=== PATIENT | female | born 1960 | race Caucasian/White ===

== ENCOUNTER → 2020-03-08 12:36 | Outpatient (CLI) | payer MEDICARE, MEDICAID, SELFPAY ==
[2020-03-08 15:28] LABS: Absolute Lymphocyte Count 2.08 X10^3/uL (0.83-4.51); Absolute Neutrophil Count 3.6 X10^3/uL (2.0-7.7); Basophil# 0.05 X10^3/uL; Basophil% 0.8 % (0-1); Eosinophil# 0.07 X10^3/uL; Eosinophils% 1.1 % (0-5); Hematocrit 42.9 % (37-47); Hemoglobin 12.9 g/dL (12.0-15.0); Lymphocyte # 2.08 X10^3/ul (4.0); Lymphocyte % 33.3 % (19-41); Mean Corp Hgb Conc 30.1 g/dL (32-36); Mean Corpuscular Hgb 26.7 pg (27.0-32.0); Mean Corpuscular Volume 88.8 fL (81-99); Mean Platelet Vol. 9.6 fl (6.2-12.0); Monocyte# 0.47 X10^3/uL; Monocyte% 7.5 % (0-10); NRBC Flagged by Analyzer 0 % (0-5); Neutrophil # 3.55 X10^3/uL (2.7-7.7); Platelet Count 494 K/mm3 (150-450); RBC Distribution Width CV 14.6 % (11.6-14.6); Red Blood Count 4.83 M/mm3 (4.2-5.4); White Blood Count 6.2 K/mm3 (4.4-11.0)
[2020-03-08 16:07] LABS: ALB/GLOB Ratio 1.2 RATIO (0.9-2.4); AST(SGOT) 16 U/L (15-37); Alanine Aminotransfer ALT/SGPT 17 U/L (13-56); Alkaline Phosphatase 126 U/L (45-117); Anion Gap 8 (5-15); BUN 6 mg/dL (7-18); BUN/Creat Ratio 9.7 RATIO (10-20); Chloride 105 mmol/L (98-107); Cholesterol 272 mg/dL (200); Creatinine, Serum 0.62 mg/dL (0.55-1.02); EST Glomerular Filtration Rate 104 mL/min (>60); Est Glom Filt Rate - Afr Amer 126 mL/min (>60); Globulin 3.3 g/dL (2.2-4.2); Glucose 97 mg/dL (74-106); High Density Lipoprotein 45 mg/dL; Potassium 3.9 mmol/L (3.5-5.1); Protein, Total 7.3 g/dL (6.4-8.2); Sodium Level 141 mmol/L (136-145); T4 Free Direct 1.45 ng/dL (0.76-1.46); Thyroid Stim Hormone (TSH) 0.01 uIU/mL (0.358-3.74); Triglycerides 229 mg/dL; Very Low Density Lipoprotein 46 mg/dL (5-40)
== END ==
PROVIDERS: PCP Family Medicine; Referring Provider Family Medicine; Visit Provider Family Medicine
DX: E03.9 Hypothyroidism, unspecified (principal); E78.5 Hyperlipidemia, unspecified
CPT/HCPCS: 36415; 80053; 80061; 84439; 84443; 85025

== ENCOUNTER → 2020-05-17 | Outpatient (CLI) | payer MEDICARE, SELFPAY ==
[2020-05-17 18:41] LABS: T4 Free Direct 1.15 ng/dL (0.76-1.46)
[2020-05-18 08:50] LABS: Thyroid Stim Hormone (TSH) 0.03 uIU/mL (0.358-3.74)
== END | disposition home or self-care (01) ==
LOC: MFPLAB 16:30
PROVIDERS: PCP Family Medicine; Referring Provider Family Medicine; Visit Provider Family Medicine
DX: E03.9 Hypothyroidism, unspecified (principal)
CPT/HCPCS: 36415; 84439; 84443

== ENCOUNTER → 2020-06-07 | Outpatient (CLI) | payer MEDICARE, SELFPAY ==
--- NOTE | 2020-06-07 15:47 | RAD_ITS ---
STUDY: X-RAY - LUMBAR SPINE REASON FOR EXAM: Female, 60 years old. LBP TECHNIQUE: 5 view(s) of the lumbar spine were obtained. COMPARISON: None FINDINGS: Normal lumbar lordosis. There is a mild lumbar levoscoliosis which may merely be positional in nature. There is a normal alignment of the vertebrae. There is a transitional vertebrae of the lumbosacral junction. There is generalized demineralization of the vertebral bodies. Normal disc space heights. There is no demonstrated fracture. There are calcified plaques of the abdominal aorta. RAD/L/S Spine Min 4 Views IMPRESSION: Generalized osteopenia. Transitional vertebrae of the lumbosacral junction. Mild mid lumbar levoscoliosis which may merely be positional in nature. There is no evidence of fracture, spondylolysis, or spondylolisthesis. Electronically Signed: Jerry Giraldo MD at 21:55 EDT , Service support ,
--- NOTE | 2020-06-07 15:49 | RAD_ITS ---
STUDY: X-RAY - SACROILIAC JOINTS REASON FOR EXAM: Female, 60 years old. LBP TECHNIQUE: 3 view(s) of the sacroiliac joints were obtained. COMPARISON: None. FINDINGS: Normal bilateral sacroiliac joints. Normal visualized sacral ala and sacrum. Normal visualized iliac bones. Normal visualized soft tissue structures. RAD/S-I Jts 3 or More Views IMPRESSION: Normal x-ray examination of the bilateral sacroiliac joints. Electronically Signed: Jerry Giraldo MD at 21:53 EDT , Service support ,
[2020-06-07 18:32] LABS: Free T3 1.9 pg/mL (2.18-3.98); T4 Free Direct 1.01 ng/dL (0.76-1.46); Thyroid Stim Hormone (TSH) 0.09 uIU/mL (0.358-3.74)
== END | disposition home or self-care (01) ==
PROVIDERS: PCP Family Medicine; Referring Provider Family Medicine; Visit Provider Family Medicine
DX: E03.9 Hypothyroidism, unspecified (principal); M54.5 Low back pain
CPT/HCPCS: 36415; 72110; 72202; 84439; 84443; 84481

== ENCOUNTER → 2020-08-09 14:37 | Outpatient (CLI) | payer MEDICARE, MEDICAID, SELFPAY ==
--- NOTE | 2020-08-09 14:39 | BD_ITS ---
STUDY: DUAL ENERGY X-RAY ABSORPTIOMETRY / DXA REASON FOR EXAM: Female, 60 years old. 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 COMPARISON: None. FINDINGS: Lumbar Spine (L1-L4): g/cm2 (0.922) / T-score (-2.3) / Z-score (-1.0) Findings are suggestive of osteopenia with a high fracture risk. Left Femur Total: g/cm2 (0.579) / T-score (-3.4) / Z-score (-2.4) Left Femoral Neck: g/cm2 (0.614) / T-score (-3.1) / Z-score (-1.8) Right Femur Total: g/cm2 (0.606) / T-score (-3.2) / Z-score (-2.2) Right Femoral Neck: g/cm2 (0.632) / T-score (-2.9) / Z-score (-1.6) BD/Dexa Bone Density Study IMPRESSION: The patient is considered osteoporotic as outlined below according to World Oscar Organization (WHO) criteria with a high fracture risk. Reference Information: The T-score is the number of standard deviations above or below the standard which is normal for young adults at their peak bone mineral density. The World Health Organization (WHO) interprets the T-scores as follows: Above -1 Normal bone density Between -1 and -2.5 Osteopenia Equal to / or below -2.5 Osteoporosis As a practical clinical guideline, osteopenia may be graded as follows: Mild -1 through -1.5 Moderate -1.6 through -2.0 Severe -2.1 through -2.4 The Z-score is the number of standard deviations above or below age-matched controls. A Z-score of less than -1.5 would be considered abnormal. References: 1. NIH Osteoporosis and Related Bone Diseases www osteo.org 2. International Society for Clinical Densitometry www iscd.org 3. National Osteoporosis Foundation www nof.org Electronically Signed: Glenn Pablo, at 10:54 EST , Service support ,
== END ==
PROVIDERS: PCP Family Medicine; Referring Provider Family Medicine; Visit Provider Family Medicine
DX: Z78.0 Asymptomatic menopausal state (principal)
CPT/HCPCS: 77080

== ENCOUNTER → 2020-08-16 13:28 | Outpatient (CLI) | payer MEDICARE, MEDICAID, SELFPAY ==
[2020-08-16 16:20] LABS: Free T3 3.5 pg/mL (2.18-3.98); T4 Free Direct 1.13 ng/dL (0.76-1.46); Thyroid Stim Hormone (TSH) 0.08 uIU/mL (0.358-3.74)
== END ==
PROVIDERS: PCP Family Medicine; Referring Provider Family Medicine; Visit Provider Family Medicine
DX: E03.9 Hypothyroidism, unspecified (principal)
CPT/HCPCS: 36415; 84439; 84443; 84481

== ENCOUNTER → 2020-11-12 11:41 | Outpatient (CLI) | payer MEDICARE, MEDICAID, SELFPAY | PROVIDERS: PCP Family Medicine; Visit Provider Registered Nurse | DX: B34.9 Viral infection, unspecified (principal) | CPT/HCPCS: 87635; U0005; U0003 ==

== ENCOUNTER → 2020-11-26 14:59 | Outpatient (CLI) | payer MEDICARE, MEDICAID, SELFPAY ==
[2020-11-26 17:51] LABS: Absolute Neutrophil Count 5.2 X10^3/uL (2.0-7.7); Basophil# 0.04 X10^3/uL; Basophil% 0.5 % (0-1); Eosinophil# 0.07 X10^3/uL; Eosinophils% 0.9 % (0-5); Hematocrit 40.9 % (37-47); Hemoglobin 12.3 g/dL (12.0-15.0); Lymphocyte % 22.9 % (19-41); Mean Corp Hgb Conc 30.1 g/dL (32-36); Mean Corpuscular Hgb 26.3 pg (27.0-32.0); Mean Corpuscular Volume 87.6 fL (81-99); Mean Platelet Vol. 9.5 fl (6.2-12.0); Monocyte% 5.4 % (0-10); NRBC Flagged by Analyzer 0 % (0-5); Platelet Count 464 K/mm3 (150-450); RBC Distribution Width CV 14.6 % (11.6-14.6); RBC Distribution Width SD 46.8 fl (35.1-43.9); Red Blood Count 4.67 M/mm3 (4.2-5.4); White Blood Count 7.4 K/mm3 (4.4-11.0)
[2020-11-26 18:13] LABS: ALB/GLOB Ratio 0.9 RATIO (0.9-2.4); AST(SGOT) 17 U/L (15-37); Alanine Aminotransfer ALT/SGPT 18 U/L (13-56); Albumin, Serum 3.6 g/dL (3.2-5.0); Alkaline Phosphatase 137 U/L (45-117); Anion Gap 10 (5-15); BUN 7 mg/dL (7-18); BUN/Creat Ratio 9.6 RATIO (10-20); Calcium,Total 8.9 mg/dL (8.5-10.1); Chloride 104 mmol/L (98-107); Creatinine, Serum 0.73 mg/dL (0.55-1.02); EST Glomerular Filtration Rate 87 mL/min (>60); Est Glom Filt Rate - Afr Amer 105 mL/min (>60); Free T3 3.2 pg/mL (2.18-3.98); Globulin 3.8 g/dL (2.2-4.2); Glucose 92 mg/dL (74-106); Potassium 3.6 mmol/L (3.5-5.1); Protein, Total 7.4 g/dL (6.4-8.2); Sodium Level 139 mmol/L (136-145); T4 Total, Thyroxin 7.9 ug/dL (4.8-13.9); Thyroid Stim Hormone (TSH) 0.68 uIU/mL (0.358-3.74)
== END ==
PROVIDERS: PCP Family Medicine; Referring Provider Family Medicine; Visit Provider Family Medicine
DX: E03.9 Hypothyroidism, unspecified (principal)
CPT/HCPCS: 36415; 80053; 84436; 84443; 84481; 85025

== ENCOUNTER → 2021-04-24 14:27 | Outpatient (CLI) | payer MEDICARE, MEDICAID, SELFPAY ==
[2021-04-24 14:36] VITALS: BP 130/73; PULSE 87; RESP 16; TEMP 36; O2SAT 94; BMI 29.6
[2021-04-24] MEDS: 0.9% NaCl Peripheral Flush Adult/Peds IV ×2 (15:00→15:20)
[2021-04-24] MEDS: Zoledronic Acid 5 MG 100 ML 300 MG IV (15:01)
[2021-04-24 15:21] VITALS: BP 113/70; PULSE 75; RESP 16; TEMP 36; O2SAT 95
== END ==
PROVIDERS: PCP Family Medicine; Referring Provider Family Medicine; Visit Provider Family Medicine
DX: M81.0 Age-related osteoporosis without current pathological fracture (principal)
CPT/HCPCS: 96365; A4216; J3489

== ENCOUNTER → 2021-05-02 14:08 | Outpatient (CLI) | payer MEDICARE, MEDICAID, SELFPAY ==
[2021-04-24 14:36] VITALS: BMI 29.6
[2021-05-02 18:06] LABS: Absolute Lymphocyte Count 2.17 X10^3/uL (0.83-4.51); Absolute Neutrophil Count 6.1 X10^3/uL (2.0-7.7); Basophil# 0.05 X10^3/uL; Basophil% 0.6 % (0-1); Eosinophil# 0.06 X10^3/uL; Eosinophils% 0.7 % (0-5); Hematocrit 42.5 % (37-47); Hemoglobin 12.9 g/dL (12.0-15.0); Lymphocyte # 2.17 X10^3/ul (0.83-4.51); Lymphocyte % 24.5 % (19-41); Mean Corp Hgb Conc 30.4 g/dL (32-36); Mean Corpuscular Hgb 25.6 pg (27.0-32.0); Mean Corpuscular Volume 84.3 fL (81-99); Mean Platelet Vol. 9.5 fl (6.2-12.0); Monocyte# 0.46 X10^3/uL; Monocyte% 5.2 % (0-10); NRBC Flagged by Analyzer 0 % (0-5); Neutrophil % 68.8 % (47-70); Platelet Count 594 K/mm3 (150-450); RBC Distribution Width CV 14.8 % (11.6-14.6); RBC Distribution Width SD 45.2 fl (35.1-43.9); Red Blood Count 5.04 M/mm3 (4.2-5.4); White Blood Count 8.9 K/mm3 (4.4-11.0)
[2021-05-02 18:44] LABS: ALB/GLOB Ratio 0.9 RATIO (0.9-2.4); AST(SGOT) 14 U/L (15-37); Alanine Aminotransfer ALT/SGPT 19 U/L (13-56); Albumin, Serum 3.6 g/dL (3.2-5.0); Alkaline Phosphatase 129 U/L (45-117); Anion Gap 10 (5-15); BUN 7 mg/dL (7-18); BUN/Creat Ratio 11.3 RATIO (10-20); Calcium,Total 8.4 mg/dL (8.5-10.1); Chloride 105 mmol/L (98-107); Creatinine, Serum 0.62 mg/dL (0.55-1.02); EST Glomerular Filtration Rate 104 mL/min (>60); Est Glom Filt Rate - Afr Amer 126 mL/min (>60); Free T3 2.8 pg/mL (2.18-3.98); Globulin 4.1 g/dL (2.2-4.2); Glucose 78 mg/dL (74-106); Potassium 3.3 mmol/L (3.5-5.1); Protein, Total 7.7 g/dL (6.4-8.2); Sodium Level 141 mmol/L (136-145); T4 Free Direct 0.86 ng/dL (0.76-1.46); Thyroid Stim Hormone (TSH) 0.35 uIU/mL (0.358-3.74)
== END ==
PROVIDERS: PCP Family Medicine; Referring Provider Family Medicine; Visit Provider Family Medicine
DX: E03.9 Hypothyroidism, unspecified (principal); R60.9 Edema, unspecified
CPT/HCPCS: 36415; 80053; 83880; 84439; 84443; 84481; 85025

== ENCOUNTER → 2021-09-06 11:57 | Outpatient (CLI) | payer MEDICARE, MEDICAID, SELFPAY | PROVIDERS: PCP Nurse Practitioner Family; Referring Provider Nurse Practitioner Family; Visit Provider Nurse Practitioner Family | DX: J06.9 Acute upper respiratory infection, unspecified (principal) | CPT/HCPCS: 87633; 87635; U0005; U0003 ==

== ENCOUNTER → 2021-09-26 16:48 | Outpatient (CLI) | payer MEDICARE, MEDICAID, SELFPAY ==
[2021-09-26 17:41] LABS: Absolute Lymphocyte Count 1.46 X10^3/uL (0.83-4.51); Absolute Neutrophil Count 5.1 X10^3/uL (2.0-7.7); Basophil# 0.03 X10^3/uL; Basophil% 0.4 % (0-1); Eosinophil# 0.06 X10^3/uL; Eosinophils% 0.8 % (0-5); Hematocrit 42.2 % (37-47); Hemoglobin 12.8 g/dL (12.0-15.0); Lymphocyte # 1.46 X10^3/ul (0.83-4.51); Lymphocyte % 20.3 % (19-41); Mean Corp Hgb Conc 30.3 g/dL (32-36); Mean Corpuscular Hgb 25.9 pg (27.0-32.0); Mean Corpuscular Volume 85.3 fL (81-99); Mean Platelet Vol. 9.5 fl (6.2-12.0); Monocyte# 0.51 X10^3/uL; Monocyte% 7.1 % (0-10); NRBC Flagged by Analyzer 0 % (0-5); Neutrophil % 71.1 % (47-70); Platelet Count 434 K/mm3 (150-450); RBC Distribution Width CV 15.2 % (11.6-14.6); RBC Distribution Width SD 47.4 fl (35.1-43.9); Red Blood Count 4.95 M/mm3 (4.2-5.4); White Blood Count 7.2 K/mm3 (4.4-11.0)
[2021-09-26 18:18] LABS: T4 Free Direct 1.04 ng/dL (0.76-1.46); Thyroid Stim Hormone (TSH) 0.21 uIU/mL (0.358-3.74)
== END ==
PROVIDERS: PCP Nurse Practitioner Family; Visit Provider Nurse Practitioner Family
DX: E03.9 Hypothyroidism, unspecified (principal); R59.1 Generalized enlarged lymph nodes
CPT/HCPCS: 36415; 84439; 84443; 84481; 85025

== ENCOUNTER 2021-12-25 14:35 | Outpatient (CLI) | payer MEDICARE, MEDICAID, SELFPAY ==
[2021-12-25 17:36] LABS: Absolute Lymphocyte Count 2.11 X10^3/uL (0.83-4.51); Absolute Neutrophil Count 5.4 X10^3/uL (2.0-7.7); Basophil# 0.04 X10^3/uL; Basophil% 0.5 % (0-1); Eosinophil# 0.09 X10^3/uL; Eosinophils% 1.1 % (0-5); Hematocrit 43.1 % (37-47); Hemoglobin 13.3 g/dL (12.0-15.0); Lymphocyte # 2.11 X10^3/ul (0.83-4.51); Lymphocyte % 25.3 % (19-41); Mean Corp Hgb Conc 30.9 g/dL (32-36); Mean Corpuscular Hgb 26.8 pg (27.0-32.0); Mean Corpuscular Volume 86.9 fL (81-99); Mean Platelet Vol. 9.8 fl (6.2-12.0); Monocyte# 0.65 X10^3/uL; Monocyte% 7.8 % (0-10); NRBC Flagged by Analyzer 0 % (0-5); Neutrophil % 64.8 % (47-70); Platelet Count 467 K/mm3 (150-450); RBC Distribution Width CV 14.4 % (11.6-14.6); RBC Distribution Width SD 46.1 fl (35.1-43.9); Red Blood Count 4.96 M/mm3 (4.2-5.4); White Blood Count 8.3 K/mm3 (4.4-11.0)
[2021-12-25 18:01] LABS: Anion Gap 8 (5-15); BUN 9 mg/dL (7-18); BUN/Creat Ratio 12.8 RATIO (10-20); Calcium,Total 8.9 mg/dL (8.5-10.1); Chloride 106 mmol/L (98-107); Cholesterol 318 mg/dL (200); EST Glomerular Filtration Rate 90 mL/min (>60); Est Glom Filt Rate - Afr Amer 108 mL/min (>60); Free T3 2.9 pg/mL (2.18-3.98); Glucose 86 mg/dL (74-106); High Density Lipoprotein 38 mg/dL; Potassium 3.8 mmol/L (3.5-5.1); Sodium Level 138 mmol/L (136-145); T4 Free Direct 1.02 ng/dL (0.76-1.46); Thyroid Stim Hormone (TSH) 1.24 uIU/mL (0.358-3.74); Triglycerides 387 mg/dL; Very Low Density Lipoprotein 77 mg/dL (5-40)
== END 2021-12-25 23:59 | disposition home or self-care (01) ==
LOC: MFPLAB 14:36
PROVIDERS: PCP Family Medicine; Referring Provider Family Medicine; Visit Provider Family Medicine
DX: E03.9 Hypothyroidism, unspecified (principal); E78.5 Hyperlipidemia, unspecified; R59.1 Generalized enlarged lymph nodes
CPT/HCPCS: 36415; 80048; 80061; 84439; 84443; 84481; 85025

== ENCOUNTER 2022-04-09 14:42 | Outpatient (CLI) | payer MEDICARE, MEDICAID, SELFPAY ==
[2022-04-09 18:41] LABS: ALB/GLOB Ratio 0.9 RATIO (0.9-2.4); AST(SGOT) 20 U/L (15-37); Alanine Aminotransfer ALT/SGPT 21 U/L (13-56); Albumin, Serum 3.5 g/dL (3.2-5.0); Alkaline Phosphatase 98 U/L (45-117); Anion Gap 7 (5-15); BUN 6 mg/dL (7-18); BUN/Creat Ratio 8.5 RATIO (10-20); Calcium,Total 9.5 mg/dL (8.5-10.1); Chloride 110 mmol/L (98-107); Cholesterol 282 mg/dL (200); Creatinine, Serum 0.71 mg/dL (0.55-1.02); EST Glomerular Filtration Rate 88 mL/min (>60); Est Glom Filt Rate - Afr Amer 107 mL/min (>60); Free T3 3.3 pg/mL (2.18-3.98); Globulin 4.1 g/dL (2.2-4.2); Glucose 82 mg/dL (74-106); High Density Lipoprotein 34 mg/dL; Potassium 3.8 mmol/L (3.5-5.1); Protein, Total 7.6 g/dL (6.4-8.2); Sodium Level 140 mmol/L (136-145); T4 Free Direct 0.93 ng/dL (0.76-1.46); Thyroid Stim Hormone (TSH) 0.16 uIU/mL (0.358-3.74); Triglycerides 464 mg/dL
== END 2022-04-09 23:59 | disposition home or self-care (01) ==
LOC: MFPLAB 14:48
PROVIDERS: PCP Family Medicine; Referring Provider Family Medicine; Visit Provider Family Medicine
DX: E03.9 Hypothyroidism, unspecified (principal); E78.5 Hyperlipidemia, unspecified
CPT/HCPCS: 36415; 80053; 80061; 84439; 84443; 84481

== ENCOUNTER → 2022-07-25 | Outpatient (CLI) | payer MEDICARE, MEDICAID, SELFPAY ==
[2022-07-25 18:19] LABS: ALB/GLOB Ratio 1.1 RATIO (0.9-2.4); AST(SGOT) 18 U/L (15-37); Alanine Aminotransfer ALT/SGPT 20 U/L (13-56); Albumin, Serum 3.9 g/dL (3.2-5.0); Alkaline Phosphatase 97 U/L (45-117); Anion Gap 5 (5-15); BUN 6 mg/dL (7-18); BUN/Creat Ratio 8.4 RATIO (10-20); Chloride 107 mmol/L (98-107); Cholesterol 188 mg/dL (200); Creatinine, Serum 0.72 mg/dL (0.55-1.02); EST Glomerular Filtration Rate 87 mL/min (>60); Est Glom Filt Rate - Afr Amer 106 mL/min (>60); Free T3 2.8 pg/mL (2.18-3.98); Globulin 3.6 g/dL (2.2-4.2); Glucose 68 mg/dL (74-106); High Density Lipoprotein 43 mg/dL; Potassium 3.6 mmol/L (3.5-5.1); Protein, Total 7.5 g/dL (6.4-8.2); Sodium Level 140 mmol/L (136-145); T4 Free Direct 0.73 ng/dL (0.76-1.46); Thyroid Stim Hormone (TSH) 1.28 uIU/mL (0.358-3.74); Triglycerides 294 mg/dL; Very Low Density Lipoprotein 59 mg/dL (5-40)
== END | disposition home or self-care (01) ==
LOC: MFPLAB 15:27
PROVIDERS: PCP Family Medicine; Referring Provider Family Medicine; Visit Provider Family Medicine
DX: E03.9 Hypothyroidism, unspecified (principal); E78.5 Hyperlipidemia, unspecified
CPT/HCPCS: 36415; 80053; 80061; 84439; 84443; 84481

== ENCOUNTER → 2022-12-18 | Outpatient (CLI) | payer MEDICARE, MEDICAID, SELFPAY ==
[2022-12-18 18:39] LABS: Absolute Lymphocyte Count 2.15 X10^3/uL (0.83-4.51); Absolute Neutrophil Count 6.2 X10^3/uL (2.0-7.7); Basophil# 0.02 X10^3/uL; Basophil% 0.2 % (0-1); Eosinophil# 0.06 X10^3/uL; Eosinophils% 0.7 % (0-5); Hematocrit 42.4 % (37-47); Hemoglobin 12.9 g/dL (12.0-15.0); Lymphocyte # 2.15 X10^3/ul (0.83-4.51); Mean Corp Hgb Conc 30.4 g/dL (32-36); Mean Corpuscular Hgb 28.1 pg (27.0-32.0); Mean Corpuscular Volume 92.4 fL (81-99); Mean Platelet Vol. 9.9 fl (6.2-12.0); Monocyte% 5.6 % (0-10); NRBC Flagged by Analyzer 0 % (0-5); Neutrophil # 6.19 X10^3/uL (2.7-7.7); Neutrophil % 69.3 % (47-70); Platelet Count 429 K/mm3 (150-450); RBC Distribution Width CV 13.7 % (11.6-14.6); RBC Distribution Width SD 46.3 fl (35.1-43.9); Red Blood Count 4.59 M/mm3 (4.2-5.4); White Blood Count 8.9 K/mm3 (4.4-11.0)
[2022-12-18 18:58] LABS: ALB/GLOB Ratio 1.1 RATIO (0.9-2.4); AST(SGOT) 17 U/L (15-37); Alanine Aminotransfer ALT/SGPT 18 U/L (13-56); Albumin, Serum 3.9 g/dL (3.2-5.0); Alkaline Phosphatase 78 U/L (45-117); Anion Gap 9 (5-15); BUN 10 mg/dL (7-18); BUN/Creat Ratio 14.5 RATIO (10-20); Chloride 107 mmol/L (98-107); Creatinine, Serum 0.69 mg/dL (0.55-1.02); EST Glomerular Filtration Rate 91 mL/min (>60); Est Glom Filt Rate - Afr Amer 111 mL/min (>60); Globulin 3.6 g/dL (2.2-4.2); Glucose 90 mg/dL (74-106); Lipase 107 U/L (73-393); Potassium 3.2 mmol/L (3.5-5.1); Protein, Total 7.5 g/dL (6.4-8.2); Sodium Level 140 mmol/L (136-145)
== END | disposition home or self-care (01) ==
LOC: MFPLAB 15:57
PROVIDERS: PCP Family Medicine; Referring Provider Family Medicine; Visit Provider Family Medicine
DX: R10.11 Right upper quadrant pain (principal); E03.9 Hypothyroidism, unspecified
CPT/HCPCS: 36415; 80053; 83690; 84443; 85025

== ENCOUNTER → 2023-01-22 | Outpatient (CLI) | payer MEDICARE, MEDICAID, SELFPAY ==
--- NOTE | 2023-01-22 09:04 | US_ITS ---
STUDY: ABDOMINAL ULTRASOUND - RIGHT UPPER QUADRANT REASON FOR VISIT: Female, 62 years old RUQ PAIN TECHNIQUE: Ultrasound evaluation of the right upper quadrant was performed with real-time and static funes-scale imaging. TECHNICAL QUALITY: Adequate. COMPARISON: None. FINDINGS: Liver: The liver measures 14.4 cm. There is normal echogenicity of the liver. The bile ducts are within normal limits. There is hepatic color flow. The direction of portal flow is hepatopetal. There is no demonstrated mass lesion. Gallbladder: Normal distended gallbladder. The gallbladder wall measures 2 mm. There is a negative sonographic Porter''s sign. There is no pericholecystic fluid. There are no gallstones. 2 small gallbladder polyps are seen. The larger measures 3 mm x 4 mm. Common Bile Duct (C.B.D.): The common bile duct measures 4 mm. Pancreas: Normal size of the head, body and tail of the pancreas. There is increased echogenicity of the pancreas. There is no demonstrated pancreatic mass or cyst. Right Kidney: Normal size of the right kidney. The right kidney measures 11.2 cm x 4.9 cm x 4.6 cm. Normal renal cortex. The right cortex measures 1.4 cm. 2 small cysts are seen. The larger measures 1.3 cm x 1.2 cm x 1 cm. This is in the upper pole. There is no right hydronephrosis. 8 mm x 6 mm x 5 mm nonobstructive calculus in the lower pole. US/Abdomen Limited IMPRESSION: Small gallbladder polyps. Right renal cysts and nonobstructive calculus. Electronically Signed: Glenn Pablo MD at 10:15 EDT ,
--- NOTE | 2023-01-22 09:35 | BD_ITS ---
STUDY: DUAL ENERGY X-RAY ABSORPTIOMETRY / DXA REASON FOR EXAM: Female, 62 years old. M85.89 TECHNIQUE: Bone Mineral Density (BMD) measurements of lumbar spine and bilateral hips were obtained. COMPARISON: Comparison is made with prior study dated August 09, 2020. FINDINGS: Lumbar Spine (L1-L4): g/cm2 (0.817) / T-score (-2.1) / Z-score (-0.4) Findings are suggestive of osteopenia with a high fracture risk. Left Femur Total: g/cm2 (0.591) / T-score (-2.9) / Z-score (-1.7) Left Femoral Neck: g/cm2 (0.513) / T-score (-3.0) / Z-score (-1.6) Right Femur Total: g/cm2 (0.633) / T-score (-2.5) / Z-score (-1.4) Right Femoral Neck: g/cm2 (0.552) / T-score (-2.7) / Z-score (-1.2) The T-Scores on the most recent prior examination were: Lumbar Spine (L1-L4): There has been improvement of bone density since the previous examination. Left Femur Total: which represents an improvement of 12.4%. Right Femur Total: which represents an improvement of 14.9%. BD/Dexa Bone Density Study IMPRESSION: The patient is considered osteoporotic as outlined below according to World Oscar Organization (WHO) criteria with a high fracture risk. There has been improvement of bone density since the previous examination. Reference Information: The T-score is the number of standard deviations above or below the standard which is normal for young adults at their peak bone mineral density. The World Health Organization (WHO) interprets the T-scores as follows: Above -1 Normal bone density Between -1 and -2.5 Osteopenia Equal to / or below -2.5 Osteoporosis As a practical clinical guideline, osteopenia may be graded as follows: Mild -1 through -1.5 Moderate -1.6 through -2.0 Severe -2.1 through -2.4 The Z-score is the number of standard deviations above or below age-matched controls. A Z-score of less than -1.5 would be considered abnormal. References: 1. NIH Osteoporosis and Related Bone Diseases www osteo.org 2. International Society for Clinical Densitometry www iscd.org 3. National Osteoporosis Foundation www nof.org Electronically Signed: Glenn Pablo MD at 10:42 EDT ,
[2023-01-22 12:53] LABS: Anion Gap 5 (5-15); BUN 10 mg/dL (7-18); BUN/Creat Ratio 13.6 RATIO (10-20); Calcium,Total 9.6 mg/dL (8.5-10.1); Chloride 105 mmol/L (98-107); Creatinine, Serum 0.73 mg/dL (0.55-1.02); EST Glomerular Filtration Rate 85 mL/min (>60); Est Glom Filt Rate - Afr Amer 103 mL/min (>60); Glucose 94 mg/dL (74-106); Potassium 3.5 mmol/L (3.5-5.1); Sodium Level 136 mmol/L (136-145)
== END | disposition home or self-care (01) ==
PROVIDERS: PCP Family Medicine; Referring Provider Family Medicine; Visit Provider Family Medicine
DX: M81.0 Age-related osteoporosis without current pathological fracture (principal); R10.11 Right upper quadrant pain
CPT/HCPCS: 36415; 76705; 77080; 80048

== ENCOUNTER → 2023-02-24 | Outpatient (CLI) | payer MEDICARE, MEDICAID, SELFPAY ==
--- NOTE | 2023-02-24 09:49 | NM_ITS ---
CLINICAL: 62-year-old female with history of right upper quadrant abdominal pain. RADIONUCLIDE HEPATOBILIARY SCINTIGRAPHY COMPARISON: Abdominal ultrasound report 01/18/2023 FINDINGS: Following the intravenous administration of 5.7 mCi of 99m Tc Mebrofenin, hepatobiliary images reveal: 1. Relatively prompt and homogeneous radiopharmaceutical concentration is noted by a normal sized liver. No parenchymal defects are identified. 2. Gallbladder activity is identified at 30 minutes post radiopharmaceutical administration. 3. Small intestinal tract is observed at 10 minutes following tracer injection. 4. Washout of the radiopharmaceutical by the hepatic parenchyma appears qualitatively normal. Cholecystokinin (0.02 ug/kg) was administered intravenously over a 30-minute period. The post CCK gallbladder ejection fraction calculated at 19 minutes following Cholecystokinin administration was noted to be 7.0 % and 16.0% at 30 minutes, (normal greater than 35%). NM/Hepatobilliary Img w/Pharm Int IMPRESSION: 1. ABNORMAL 99m Tc Mebrofenin hepatobiliary imaging examination with Cholecystokinin. A. A gallbladder ejection fraction calculated to be less than 35% following the administration of Cholecystokinin is consistent with the presence of functional hepatobiliary disease (gallbladder and/or sphincter of Oddi dyskinesia) and/or organic hepatobiliary disease (chronic acalculous cholecystitis and/or cystic duct syndrome) in patients with intermediate to high pretest probabilities of hepatobiliary illness. (Edi Adame et al, Journal of Nuclear Medicine 32:1695, 1991). Electronically Signed: Henrry Saul, at 22:03 EDT ,
== END | disposition home or self-care (01) ==
LOC: NM 09:49
PROVIDERS: PCP Family Medicine; Referring Provider Family Medicine; Visit Provider Family Medicine
DX: R10.11 Right upper quadrant pain (principal)
CPT/HCPCS: 78227; A9537; J2805

== ENCOUNTER 2023-03-20 05:56 | Day surgery (SDC) | payer MEDICARE, MEDICAID, SELFPAY ==
[2023-03-20] VITALS (8 sets, daily range): BP systolic 127–152; BP diastolic 77–82; PULSE 67–80; RESP 14–18; TEMP 36.5–36.7; O2SAT 93–100; BMI 30.4
--- NOTE | 2023-03-20 06:18 | EKG12_ITS ---
Test Reason : PREOP Blood Pressure : / mmHG Vent. Rate : 067 BPM Atrial Rate : 067 BPM P-R Int : 184 ms QRS Dur : 088 ms QT Int : 418 ms P-R-T Axes : 062 -44 018 degrees QTc Int : 441 ms Normal sinus rhythm Left axis deviation Abnormal ECG No previous ECGs available Confirmed by CANDACE HOPKINS, CRISTIN ([id number]), film and video editor NORA DUNLAP ([id number]) on 03/23/2023 2:41:28 PM Referred By: Melissa Munoz Confirmed By:CRISTIN MARIA MD
[2023-03-20] MEDS: Lactated Ringers 1,000 ML 15 ML IV (06:43)
--- NOTE | 2023-03-20 06:57 | HP.PCM_ITS ---
History and Physical Date of Admission: 03/20/23 Date of Service:? 03/05/23 MR#: [id number] Acct: [id number] Name:PATY WYMAN Rep #: [id number] : 1960 ? ? Provider: Dr. Melissa Munoz MD Age/Sex:? 62/F ? ? Location[place] [facility] [place] Status: Signed with Addenda ADDENDUM by Dr. Melissa Munoz MD on 03/18/23 at 0917 Intake Chief Complaint: gallbladder Allergies morphine Allergy (Verified 03/13/23 09:51) ItchingSulfa (Sulfonamide Antibiotics) Allergy (Verified 03/13/23 09:51) Hivesmeperidine [From Demerol] Adverse Reaction (Verified 03/13/23 09:51) Other Medications calcium carbonate 600 mg calcium (1,500 mg) tablet (Calcium) 600 mg PO DAILY 03/05/23 [History Confirmed 03/13/23] cholecalciferol (vitamin D3) 50 mcg (2,000 unit) capsule 50 mcg PO DAILY 03/05/23 [History Confirmed 03/13/23] escitalopram oxalate 10 mg tablet (Lexapro) 10 mg PO DAILY 03/05/23 [History Confirmed 03/13/23] gabapentin 800 mg tablet 800 mg PO 4X/DAY 03/05/23 [History Confirmed 03/13/23] lamotrigine 100 mg tablet 100 mg PO BID 03/05/23 [History Confirmed 03/13/23] levothyroxine 75 mcg capsule 75 mcg PO DAILY 03/05/23 [History Confirmed 03/13/23] lorazepam 0.5 mg tablet (Ativan) 0.5 mg PO DAILY PRN Anxiety 03/05/23 [History Confirmed 03/13/23] methocarbamol 500 mg tablet 500 mg PO 4X/DAY 03/05/23 [History Confirmed 03/13/23] pantoprazole 40 mg tablet,delayed release 40 mg PO DAILY #30 tabs 03/05/23 [Rx Confirmed 03/13/23] potassium gluconate 600 mg (99 mg) tablet 600 mg PO DAILY 03/05/23 [History Confirmed 03/13/23] liothyronine 5 mcg tablet 5 mcg PO DAILY 03/13/23 [History Confirmed 03/13/23] rosuvastatin 10 mg tablet (Crestor) 10 mg PO DAILY 03/13/23 [History Confirmed 03/13/23] Assessment and Plan Assessment and Plan (1) Biliary dyskinesia: ?Status:?Acute ?Comment: HIDA scan ejection fraction 60% (2) Acid reflux: ?Status:?Acute 03/18/23 0917 <Electronically signed by Melissa Munoz MD> Date Melissa Munoz MD cc: ? ~* Signed Intake Vital Signs ? 04/24/2114:36 03/05/2315:01 Height 5 ft 1 in 5 ft 1 in Weight: ? 159 lb BMI ? 30.0 BP ? 127/84 H Blood Pressure Location ? Rt brachial Position ? Sitting Respiration ? 17 Pulse ? 90 Pulse Source ? Monitor Temp ? 97.9 F Temp Source ? Temporal Pulse Oximetry (%) ? 95 Oxygen Delivery Method ? room air Intake Visit Reasons:?GALLBLADDER DISEASE Chief Complaint: gallbladder Is patient in pain?: Yes Allergies morphine Allergy (Verified 03/05/23 15:02) ItchingSulfa (Sulfonamide Antibiotics) Allergy (Verified 03/05/23 15:02) Hivesmeperidine [From Demerol] Adverse Reaction (Verified 03/05/23 15:02) Other Medications calcium carbonate 600 mg calcium (1,500 mg) tablet (Calcium) 600 mg PO DAILY 03/05/23 [History Confirmed 03/05/23] cholecalciferol (vitamin D3) 50 mcg (2,000 unit) capsule 50 mcg PO DAILY 03/05/23 [History Confirmed 03/05/23] escitalopram oxalate 10 mg tablet (Lexapro) 10 mg PO DAILY 03/05/23 [History Confirmed 03/05/23] gabapentin 800 mg tablet 800 mg PO 4X/DAY 03/05/23 [History Confirmed 03/05/23] lamotrigine 100 mg tablet 100 mg PO BID 03/05/23 [History Confirmed 03/05/23] levothyroxine 75 mcg capsule 75 mcg PO DAILY 03/05/23 [History Confirmed 03/05/23] lorazepam 0.5 mg tablet (Ativan) 0.5 mg PO DAILY PRN 03/05/23 [History Confirmed 03/05/23] methocarbamol 500 mg tablet 500 mg PO TID 03/05/23 [History Confirmed 03/05/23] pantoprazole 40 mg tablet,delayed release 40 mg PO DAILY #30 tabs 03/05/23 [Rx Confirmed 03/05/23] potassium gluconate 600 mg (99 mg) tablet 600 mg PO DAILY 03/05/23 [History Confirmed 03/05/23] PFSH Surgical History?(Updated 03/05/23 @ 15:00 by Lucinda Pereira) H/O hernia repair H/O thyroidectomy History of hysterectomy Family History?(Updated 03/05/23 @ 15:00 by Lucinda Pereira) Mother Heart disease Hypertension Cancer ?? ? skinFather Hypertension Social History?(Updated 03/05/23 @ 15:01 by Lucinda Pereira) Smoking Status:? Current every day smoker alcohol intake:? never substance use type:? does not use HPI HPI HPI: 62-year-old female presents due to biliary dyskinesia.? Patient states she has bloating 20/04.? Does have fullness easily and some nausea which then can have right upper quadrant back pain.? Patient states with these episodes she does have yellow stools that burning.? Patient states she can have these episodes over 4 to 5 days.? Patient does try to avoid fatty and greasy foods.? Patient h as a history of hiatal hernia repair in 2005 but has been on Prilosec since then main symptoms of reflux were burning of the esophagus and mouth sores and occasional epigastric pain.? Patient's last EGD was 4 years ago in [facility] where patient moved from.? Patient also had a colonoscopy at that time.? Patient does have some new memory issues per patient.? Patient also states with anesthesia she has had issues where she is awake but still paralyzed. ROS General General: Yes weight change and fatigue; No appetite, colon cancer or breast cancer HEENT HEENT: No difficulty swallowing, eye injury, eye surgery, swollen glands or hoarseness Endo Endocrine: Yes thyroid disease; No diabetes mellitus, thyroid cancer, Hair loss, heat intolerance or cold intolerance Skin Skin: No rash or changing moles Musc Musculoskeletal: Yes back problems and arthritis; No rheumatoid arthritis, gout or joint pain Cardio Cardiovascular: No murmur, pacemaker, heart disease, atrial fibrillation, high blood pressure, heart attack, heart stent, palpitations, shortness of breat with exertion or chest pain Psych Psychiatric: Yes depression and anxiety; No hearing voices Resp Respiratory: No shortness of breath, No sleep apnea, No cough, No COPD, No asthma, No emphysema and No wheezing Gastro Gastrointestinal: Yes abdominal pain, Yes nausea or vomiting, Yes diarrhea, Yes constipation, No blood in stool, Yes acid reflux, Yes hemorrhoids, No ulcers, Yes gallbladder problem and No black,tarry stools Gerry Hematologic: No blood thinners, No blood disorders, No bleeding, No anemia and No blood clots Neuro Neurologic: Yes numbness and Yes tingling Exam Const General: cooperative, healthy appearing and no acute distress HENMT Head: normal to inspection Resp Effort & Inspection: normal respiratory effort Cardio Rate: regular rate GI Inspection: non-distended Palpation: soft, no guarding, no hernias and tender (RUQ>epigastric, LUQ) with no rebound tenderness Skin General: no rashes or lesions noted Neuro General: patient oriented x3 Extrem General: no clubbing, cyanosis or edema Psych Affect: normal affect Assessment and Plan Assessment and Plan (1) Biliary dyskinesia: ?Status:?Acute (2) Acid reflux: ?Status:?Acute ? ? ? Medications: New pantoprazole 40 mg PO DAILY 30 tabs 4RF ? ? Discontinued omeprazole magnesium (Prilosec OTC) ?? Discontinued Reason:? Discontinued by PCP/other physicians 40 mg PO DAILY ? ? Plan Discussed with patient since she is still having some symptoms in the bloating that could be due to her reflux as well we will try changing her from the Prilosec to pantoprazole 40 mg p.o. daily she has been this on this for years.? Patient was agreeable with plan. Reviewed the anatomy with the patient and discussed the procedure: laparoscopic cholecystectomy with cholangiograms, possible open. Review risks including but not limited to bleeding, infection, hernia, bile leak, retained gallstones requiring another procedure ERCP- Endoscopic Retrograde Cholangiopancreatography, injury to another organ (bile ducts, common bile duct, small bowel, etc.) and conversion to an open procedure. All questions were answered. Melissa Munoz M.D. Pager: [phone] [facility] [place] [address] [place] [address], [address] [place] [address] Office: [phone] Coding Level of Care Code Off vis,new,level 3 Diagnoses Biliary dyskinesia? K82.8 Acid reflux? K21.9 03/05/23 1530 <Electronically signed by Melissa Munoz MD> Date Melissa Munoz MD
--- NOTE | 2023-03-20 07:30 | GALL_PTH ---
PATIENT: PATY INGRAM LOC: [facility] [place] U#:[id number] AGE/SX: 62/F ROOM: RE03/20/[address]: Dr. Melissa Munoz MD : 1960 BED: DIS: 03/20/2023 SPEC #: [id number] RECD: 03/20/23 11:44 STATUS: SHARI RENidhi #: [id number] JACINTA: 03/20/23 07:[address]: Melissa Munoz DEPT: SURGICAL PATHOLOGY RECD BY: Eneida De Souza ENTERED: 03/20/23 12:11 SP TYPE: RIKI AKBAR DR: Dr. Aneudy Win MD Tissues: Gallbladder, NOS Procedures: Surgery Specimen Level III HEADER OPERATION: Laparoscopic cholecystectomy with IOC PRE-OP DIAGNOSIS: Biliary dyskinesia TISSUE SUBMITTED: Gallbladder MICROSCOPIC DIAGNOSIS Gallbladder, cholecystectomy: Chronic cholecystitis. AM:eloy 03/23/2023 MICROSCOPIC DESCRIPTION Slides are reviewed. GROSS DESCRIPTION Received is one container labeled with the patient's name and designated gallbladder. The specimen consists of a gallbladder measuring 9.5 x 3.0 x 1.0 cm. The external surface is smooth and glistening. Focally, it is granular, hemorrhagic and contains cautery artifact. The lumen of the gallbladder contains yellow-green mucoid bile and no stones are seen. The mucosa is bile-stained and without any mass lesions. The gallbladder wall averages 0.1 cm in thickness and is free of mass lesions. Cupola Patcher sections of the gallbladder and the cystic duct at margin of resection are submitted in one cassette. / AM:eloy 03/20/2023 TC:3 CPT: 99473
[2023-03-20] MEDS: Cefazolin 2 GM in 0.9% Normal Saline 100 ML IV (10:10)
--- NOTE | 2023-03-20 10:15 | RAD_ITS ---
Exam: FL Cholangiogram and/or Pancreatography OR Comparison: History: PAIN Radiation: Cumulative dose 1.63 mGy, fluoroscopic time 4.1 seconds. IMAGES: Real-time injection images during intraoperative injection of the cystic duct. There is immediate emptying into the duodenum, no filling defect in the common duct. No common duct dilatation. RAD/Cholangiogram/ O R,Initial IMPRESSION: Intraoperative fluoroscopic exam with injection of the cystic duct. No filling defect in the common or intrahepatic ducts. Electronically Signed: Sara Madsen MD at 8:23 EDT ,
[2023-03-20] MEDS: Bupivacaine Mpf 0.5% 30 ML VIAL (10:19)
--- NOTE | 2023-03-20 11:01 | OP.PCM_ITS ---
Report of Operation Date of Procedure: 03/20/23 Pre-Operative Diagnosis: Biliary dyskinesia Surgery/Procedure Performed:: Laparoscopic cholecystectomy with cholangiograms Surgeon: Melissa Munoz Type of Anesthesia: General/Supplemental Anesthesiologist: Chirag Gaona Special Medications: Ancef 2 g IV x1 Estimated Blood Loss (mL): < 10 cc Description of Procedure: Indications: this is a 62 year-old female who developed abdominal pain/nausea/vomiting and on workup was found to have biliary dyskinesia, with a normal common bile duct. Laparoscopic cholecystectomy was elected. Description procedure: The patient was placed on operating table in supine position. A timeout was completed verifying correct patient, procedure, site, position and special equipment prior to beginning procedure. General Anesthesia was induced. The abdomen was prepped and draped in usual sterile fashion. An incision was made in the natural skin line above the umbilicus. The fascia was elevated and incised. The peritoneum was elevated and incised. Entry into the peritoneum was confirmed visually and no bowel was noted in the vicinity of the incision. Soriano trocar was placed. The abdomen was insufflated with carbon dioxide to a pressure of 12-15 mmHg. Patient tolerated insufflation well. The laparoscope was then inserted and abdomen inspected. No injuries from initial trocar placement were noted. Additional trochars were then inserted in the following locations 5 mm trocar in the epigastrium and 2 more 5 mm trochars along the right costal margin. The abdomen was inspected no abnormalities were found. The table is placed in reverse Trendelenburg position with the right side up. The dome of the gallbladder was grasped with atraumatic grasper passed through the lateral port and retracted over the dome of the liver. Infundibulum was then grasped with atraumatic grasper through the midclavicular port and retracted to the right lower quadrant. This maneuver exposed Calot's triangle. The peritoneum overlying the gallbladder infundibulum was then incised and cystic duct and artery identified and circumferentially dissected. Collazo catheter was used for cholangiograms. The cholangiogram showed good filling of the common bile duct into the duodenum with no filling defects, good filling of the right and left bile ducts as well. The cystic duct and artery were then doubly clipped and divided close to the gallbladder. The gallbladder then dissected from its peritoneal attachments by electrocautery. Hemostasis was checked and the gallbladder and contained stones were removed using the endoscopic retrieval bag through the umbilical port. The gallbladder is passed off table as specimen. The gallbladder fossa was ir rigated with saline and hemostasis obtained. There is no evidence of bleeding from the gallbladder fossa or cystic artery leakage of bile from the cystic duct stump. Secondary trochars removed under direct vision. No bleeding was noted the trocar sites. The laparoscope was withdrawn and umbilical trocar removed. The abdomen was allowed to collapse. The fascia of the 12 mm trocar was closed with a [id number] 0 Vicryl suture. The skin was closed with sutures of 4-0 Monocryl and Steri-Strips. The patient was extubated. The patient tolerated procedure well and was taken to the postanesthesia care unit in stable condition. Complications none
[2023-03-20] MEDS: oxyCODONE 5 MG Tablet PO (13:31)
--- NOTE | 2023-03-20 14:11 | DCINST_ITS ---
Discharge Instructions Diet Discharge Diet: Light diet - advance as tolerated Activity Discharge Activity: May Not Drive (while taking narcotic pain medications.) May shower in (days): 1 Lifting Restrictions: no lifting >20 lbs x 2 wks, no strenuous exercise for 4 wks Dressing / Incision Call your doctor if your incision/area has: Continuous Slow Oozing, Sudden Increased Bleeding, Increased Pain/ Swelling, Increased Redness, Foul Smelling Discharge and Swelling at the incision site Call your doctor if you observe: Fever of 101 or Higher Remove Dressing in: 2 days Cleanse incision/area with: Soap & Water Additional Dressing/Incision Instructions:: Steri-Strips will fall off in 7 to 10 days, if they do not fall off okay to remove after 10 days. Follow Up Care Please Follow Up With: Melissa Munoz MD When: Call the office for a follow-up appointment 2 weeks; after 5 PM and on the weekends call [phone] with any concerns. Test Results: Test results from this visit will be discussed in further detail at your follow- up appointment, if applicable. Discharge Plan Admission Attending Provider: Melissa Munoz Primary Care Provider: Aneudy Win Discharge Orders/Prescriptions Prescriptions: New oxycodone-acetaminophen 5-325 mg tablet 1 - 2 tab PO Q6H PRN (Reason: pain) 3 Days Qty: 14 0RF Continued levothyroxine 75 mcg capsule 75 mcg PO DAILY methocarbamol 500 mg tablet 500 mg PO 4X/DAY gabapentin 800 mg tablet 800 mg PO 4X/DAY lamotrigine 100 mg tablet 100 mg PO BID escitalopram oxalate [Lexapro] 10 mg tablet 10 mg PO DAILY calcium carbonate [Calcium 600] 600 mg calcium (1,500 mg) tablet 600 mg PO DAILY potassium gluconate 600 mg (99 mg) tablet 600 mg PO DAILY cholecalciferol (vitamin D3) 50 mcg (2,000 unit) capsule 50 mcg PO DAILY lorazepam [Ativan] 0.5 mg tablet 0.5 mg PO DAILY PRN (Reason: Anxiety) pantoprazole 40 mg tablet,delayed release (DR/EC) 40 mg PO DAILY Qty: 30 4RF liothyronine 5 mcg Tablet 5 mcg PO DAILY rosuvastatin [Crestor] 10 mg Tablet 10 mg PO DAILY Referrals / Follow Up: Aneudy Win MD [Primary Care Provider] - Disposition Disposition (needs filled in before D/C Order can be placed): Home, Self Care
== END 2023-03-20 14:44 | disposition home or self-care (01) ==
LOC: SDC 05:57 → AC 05:57
PROVIDERS: PCP Family Medicine; Referring Provider Surgery; Visit Provider Surgery
PROC: (CPT 47610; principal; 2023-03-20 07:10)
DX: K80.12 Calculus of gallbladder with acute and chronic cholecystitis without obstruction (principal); F31.9 Bipolar disorder, unspecified; K21.9 Gastro-esophageal reflux disease without esophagitis; E78.00 Pure hypercholesterolemia, unspecified; E07.9 Disorder of thyroid, unspecified; F17.200 Nicotine dependence, unspecified, uncomplicated; Z79.890 Hormone replacement therapy; Z79.899 Other long term (current) drug therapy
CPT/HCPCS: 47563; 00790; 74300; 76000; 88304; 93005; J7120; J2405

== ENCOUNTER → 2023-06-18 | Outpatient (CLI) | payer MEDICARE, MEDICAID, SELFPAY ==
--- NOTE | 2023-06-18 15:48 | RAD_ITS ---
INDICATION: PAIN EXAMINATION/TECHNIQUE: X-RAY - XR Hips Bilateral with Pelvis when performed; 2 Views COMPARISON: None. FINDINGS: No fracture demonstrated. The femoral heads are normal in contour. No dislocation at the hips. Mild joint space narrowing of both hips with subchondral sclerosis and osteophytes, symmetric bilaterally. Surgical anchors overlying the parasymphyseal pubis. Degenerative changes in the lower lumbar spine. RAD/Hips B/L min 2 views w/ Pelvis IMPRESSION: No evidence of fracture. Mild degenerative changes of the hips. Electronically Signed: Gina Gorman MD at 4:06 EDT ,
[2023-06-18 18:40] LABS: ALB/GLOB Ratio 1.1 RATIO (0.9-2.4); AST(SGOT) 16 U/L (15-37); Alanine Aminotransfer ALT/SGPT 20 U/L (13-56); Alkaline Phosphatase 94 U/L (45-117); Anion Gap 6 (5-15); BUN 11 mg/dL (7-18); BUN/Creat Ratio 12.7 RATIO (10-20); Calcium,Total 9.3 mg/dL (8.5-10.1); Chloride 106 mmol/L (98-107); Cholesterol 184 mg/dL (200); Creatinine, Serum 0.87 mg/dL (0.55-1.02); EST Glomerular Filtration Rate 70 mL/min (>60); Est Glom Filt Rate - Afr Amer 84 mL/min (>60); Free T3 2.3 pg/mL (2.18-3.98); Globulin 3.7 g/dL (2.2-4.2); Glucose 87 mg/dL (74-106); High Density Lipoprotein 46 mg/dL; Potassium 4.1 mmol/L (3.5-5.1); Protein, Total 7.7 g/dL (6.4-8.2); Sodium Level 139 mmol/L (136-145); T4 Free Direct 0.66 ng/dL (0.76-1.46); Thyroid Stim Hormone (TSH) 4.02 uIU/mL (0.358-3.74); Triglycerides 232 mg/dL; Very Low Density Lipoprotein 46 mg/dL (5-40)
== END | disposition home or self-care (01) ==
PROVIDERS: PCP Family Medicine; Visit Provider Family Medicine
DX: E03.9 Hypothyroidism, unspecified (principal); E78.5 Hyperlipidemia, unspecified
CPT/HCPCS: 36415; 73521; 80053; 80061; 84439; 84443; 84481

== ENCOUNTER 2023-08-06 14:57 | Outpatient (CLI) | payer MEDICARE, MEDICAID, SELFPAY ==
[2023-08-06 15:16] VITALS: BP 131/89; PULSE 91; RESP 16; TEMP 36.4; O2SAT 92; BMI 29.8
[2023-08-06] MEDS: DENOSUMAB 60 MG/ML SC (15:23)
== END 2023-08-06 14:58 | disposition home or self-care (01) ==
LOC: MEDOUTP 14:57
PROVIDERS: PCP Family Medicine; Referring Provider Family Medicine; Visit Provider Family Medicine
DX: M81.0 Age-related osteoporosis without current pathological fracture (principal)
CPT/HCPCS: 96372; J0897

== ENCOUNTER → 2023-09-17 | Outpatient (CLI) | payer MEDICARE, MEDICAID, SELFPAY ==
[2023-09-17 18:16] LABS: ALB/GLOB Ratio 1.2 RATIO (0.9-2.4); AST(SGOT) 19 U/L (15-37); Alanine Aminotransfer ALT/SGPT 16 U/L (13-56); Albumin, Serum 3.9 g/dL (3.2-5.0); Alkaline Phosphatase 85 U/L (45-117); Anion Gap 5 (5-15); BUN 10 mg/dL (7-18); BUN/Creat Ratio 13.4 RATIO (10-20); Calcium,Total 9.3 mg/dL (8.5-10.1); Chloride 108 mmol/L (98-107); Cholesterol 178 mg/dL (200); Creatinine, Serum 0.75 mg/dL (0.55-1.02); EST Glomerular Filtration Rate 83 mL/min (>60); Est Glom Filt Rate - Afr Amer 101 mL/min (>60); Globulin 3.2 g/dL (2.2-4.2); Glucose 79 mg/dL (74-106); High Density Lipoprotein 44 mg/dL; Potassium 4.6 mmol/L (3.5-5.1); Protein, Total 7.1 g/dL (6.4-8.2); Sodium Level 142 mmol/L (136-145); T4 Free Direct 0.89 ng/dL (0.76-1.46); Thyroid Stim Hormone (TSH) 0.22 uIU/mL (0.358-3.74); Triglycerides 296 mg/dL; Very Low Density Lipoprotein 59 mg/dL (5-40)
== END | disposition home or self-care (01) ==
LOC: MFPLAB 16:06
PROVIDERS: PCP Family Medicine; Visit Provider Family Medicine
DX: E78.5 Hyperlipidemia, unspecified (principal); E03.9 Hypothyroidism, unspecified
CPT/HCPCS: 36415; 80053; 80061; 84439; 84443; 84481

== ENCOUNTER → 2023-12-17 | Outpatient (CLI) | payer MEDICARE, MEDICAID, SELFPAY ==
[2023-12-17 22:30] LABS: AST(SGOT) 19 U/L (15-37); Alanine Aminotransfer ALT/SGPT 20 U/L (13-56); Albumin, Serum 3.9 g/dL (3.2-5.0); Alkaline Phosphatase 80 U/L (45-117); Anion Gap 4 (5-15); BUN 7 mg/dL (7-18); Calcium,Total 9.3 mg/dL (8.5-10.1); Chloride 107 mmol/L (98-107); Cholesterol 182 mg/dL (200); Creatinine, Serum 0.78 mg/dL (0.55-1.02); EST Glomerular Filtration Rate 80 mL/min (>60); Est Glom Filt Rate - Afr Amer 96 mL/min (>60); Globulin 3.8 g/dL (2.2-4.2); Glucose 91 mg/dL (74-106); High Density Lipoprotein 42 mg/dL; Potassium 3.9 mmol/L (3.5-5.1); Protein, Total 7.7 g/dL (6.4-8.2); Sodium Level 139 mmol/L (136-145); T4 Free Direct 0.97 ng/dL (0.76-1.46); Thyroid Stim Hormone (TSH) 0.23 uIU/mL (0.358-3.74); Triglycerides 279 mg/dL; Very Low Density Lipoprotein 56 mg/dL (5-40)
== END | disposition home or self-care (01) ==
LOC: MFPLAB 15:55
PROVIDERS: PCP Family Medicine; Visit Provider Family Medicine
DX: E03.9 Hypothyroidism, unspecified (principal); R03.0 Elevated blood-pressure reading, without diagnosis of hypertension; E78.5 Hyperlipidemia, unspecified
CPT/HCPCS: 36415; 80053; 80061; 84439; 84443; 84481

== ENCOUNTER 2024-02-05 14:07 | Outpatient (CLI) | payer MEDICARE, MEDICAID, SELFPAY ==
[2024-02-05 14:10] VITALS: BP 142/87; PULSE 89; RESP 16; TEMP 36.7; O2SAT 94
[2024-02-05] MEDS: DENOSUMAB 60 MG/ML SC (14:16)
== END 2024-02-05 14:08 | disposition home or self-care (01) ==
LOC: MEDOUTP 14:08
PROVIDERS: PCP Family Medicine; Referring Provider Family Medicine; Visit Provider Family Medicine
DX: M81.0 Age-related osteoporosis without current pathological fracture (principal)
CPT/HCPCS: 96372; J0897

== ENCOUNTER → 2024-06-06 | Outpatient (CLI) | payer MEDICARE, MEDICAID, SELFPAY ==
[2024-06-06 17:52] LABS: Absolute Lymphocyte Count 1.87 X10^3/uL (0.83-4.51); Absolute Neutrophil Count 8.9 X10^3/uL (2.0-7.7); Basophil# 0.04 X10^3/uL; Basophil% 0.4 % (0-1); Eosinophil# 0.09 X10^3/uL; Eosinophils% 0.8 % (0-5); Hematocrit 40.8 % (37-47); Hemoglobin 12.6 g/dL (12.0-15.0); Lymphocyte # 1.87 X10^3/ul (0.83-4.51); Lymphocyte % 16.4 % (19-41); Mean Corp Hgb Conc 30.9 g/dL (32-36); Mean Corpuscular Hgb 27.2 pg (27.0-32.0); Mean Corpuscular Volume 88.1 fL (81-99); Mean Platelet Vol. 10.1 fl (6.2-12.0); Monocyte# 0.49 X10^3/uL; Monocyte% 4.3 % (0-10); NRBC Flagged by Analyzer 0 % (0-5); Neutrophil # 8.85 X10^3/uL (2.7-7.7); Neutrophil % 77.8 % (47-70); Platelet Count 423 K/mm3 (150-450); RBC Distribution Width CV 14.5 % (11.6-14.6); RBC Distribution Width SD 46.2 fl (35.1-43.9); Red Blood Count 4.63 M/mm3 (4.2-5.4); White Blood Count 11.4 K/mm3 (4.4-11.0)
[2024-06-06 20:38] LABS: AST(SGOT) 20 U/L (15-37); Alanine Aminotransfer ALT/SGPT 18 U/L (13-56); Albumin, Serum 3.8 g/dL (3.2-5.0); Alkaline Phosphatase 84 U/L (45-117); Anion Gap 14 (5-15); BUN 6 mg/dL (7-18); BUN/Creat Ratio 7.6 RATIO (10-20); Calcium,Total 9.5 mg/dL (8.5-10.1); Chloride 110 mmol/L (98-107); Creatinine, Serum 0.79 mg/dL (0.55-1.02); EST Glomerular Filtration Rate 78 mL/min (>60); Est Glom Filt Rate - Afr Amer 94 mL/min (>60); Globulin 3.9 g/dL (2.2-4.2); Glucose 104 mg/dL (74-106); Potassium 3.6 mmol/L (3.5-5.1); Protein, Total 7.7 g/dL (6.4-8.2); Sodium Level 145 mmol/L (136-145); Thyroid Stim Hormone (TSH) 0.484 uIU/mL (0.358-3.740)
== END | disposition home or self-care (01) ==
LOC: MFPLAB 14:59
PROVIDERS: PCP Family Medicine; Visit Provider Family Medicine
DX: E03.9 Hypothyroidism, unspecified (principal); R03.0 Elevated blood-pressure reading, without diagnosis of hypertension; R53.1 Weakness
CPT/HCPCS: 36415; 80053; 84443; 84481; 85025

== ENCOUNTER 2024-08-12 13:56 | Outpatient (CLI) | payer MEDICARE, MEDICAID, SELFPAY ==
[2024-08-12 14:08] VITALS: BP 132/78; PULSE 86; RESP 16; TEMP 36.1; O2SAT 96; BMI 30.2
[2024-08-12] MEDS: DENOSUMAB 60 MG/ML SC (14:10)
== END 2024-08-12 23:59 | disposition home or self-care (01) ==
LOC: MEDOUTP 13:56
PROVIDERS: PCP Family Medicine; Referring Provider Family Medicine; Visit Provider Family Medicine
DX: M81.0 Age-related osteoporosis without current pathological fracture (principal)
CPT/HCPCS: 96372; J0897

== ENCOUNTER → 2024-11-17 | Outpatient (CLI) | payer MEDICARE, MEDICAID, SELFPAY ==
[2024-11-17 18:16] LABS: Cholesterol 155 mg/dL (200); Free T3 2.6 pg/mL (2.18-3.98); High Density Lipoprotein 46 mg/dL; T4 Free Direct 0.91 ng/dL (0.76-1.46); Thyroid Stim Hormone (TSH) 0.628 uIU/mL (0.358-3.740); Triglycerides 254 mg/dL; Very Low Density Lipoprotein 51 mg/dL (5-40)
== END | disposition home or self-care (01) ==
LOC: MFPLAB 13:46
PROVIDERS: PCP Family Medicine; Referring Provider Family Medicine; Visit Provider Family Medicine
DX: E03.9 Hypothyroidism, unspecified (principal); E78.5 Hyperlipidemia, unspecified
CPT/HCPCS: 36415; 80061; 84439; 84443; 84481

== ENCOUNTER → 2025-01-27 | Outpatient (CLI) | payer MEDICARE, MEDICAID, SELFPAY ==
--- NOTE | 2025-01-27 16:04 | RAD_ITS ---
PROCEDURE: L/S SPINE MIN 4 VIEWS 01/27/2025 REASON FOR EXAM: BACK PAIN TECHNIQUE: Four views; AP, lateral and bilateral oblique COMPARISON: None available FINDINGS: Large hiatal hernia. For nomenclature purposes there is a partially lumbarized S1 segment. No fracture or malalignment. Mild leftward curvature. There appears to be possible osteopenia. No definite spondylolysis identified. L3-4 mild disc space narrowing L4-5 mild disc space narrowing Abdominal aortic atherosclerotic calcification. Ovoid calcific density to the right of the lumbar spine around the L4-5 level unclear if this is bowel contents or possibility of a kidney stone or other intra-abdominal calcification such as a calcified lymph node or other lesion. RAD/L/S Spine Min 4 Views IMPRESSION: Large hiatal hernia. Spondylosis/discogenic change as above. Ovoid calcific density to the right of the lumbar spine around the L4-5 level u nclear if this is bowel contents or possibility of a kidney stone or other intra-abdominal calcification such as a calcified lymph node or other lesion. Reading Location: [id number]
== END | disposition home or self-care (01) ==
LOC: MTRAD 16:03
PROVIDERS: PCP Family Medicine; Referring Provider Family Medicine; Visit Provider Family Medicine
DX: M54.9 Dorsalgia, unspecified (principal)
CPT/HCPCS: 72110

== ENCOUNTER 2025-02-24 12:18 | Outpatient (CLI) | payer MEDICARE, MEDICAID, SELFPAY ==
[2025-02-24 12:29] VITALS: BP 127/78; PULSE 76; RESP 16; TEMP 36.1; O2SAT 95
[2025-02-24] MEDS: DENOSUMAB 60 MG/ML SC (12:35)
== END 2025-02-24 23:59 | disposition home or self-care (01) ==
LOC: MEDOUTP 12:18
PROVIDERS: PCP Family Medicine; Referring Provider Family Medicine; Visit Provider Family Medicine
DX: M81.0 Age-related osteoporosis without current pathological fracture (principal)
CPT/HCPCS: 96372; J0897

== ENCOUNTER → 2025-04-28 | Outpatient (CLI) | payer MEDICARE, MEDICAID, SELFPAY | END | disposition home or self-care (01) | LOC: US 15:07 | PROVIDERS: PCP Family Medicine; Referring Provider Family Medicine; Visit Provider Family Medicine | DX: R22.40 Localized swelling, mass and lump, unspecified lower limb (principal) | CPT/HCPCS: 76882 ==

== ENCOUNTER → 2025-06-16 | Outpatient (CLI) | payer MEDICARE, MEDICAID, SELFPAY ==
--- NOTE | 2025-06-16 14:42 | CT_ITS ---
PROCEDURE: EXTREMITY LOWER WITH CONTRAST 06/16/2025 REASON FOR EXAM: LOCALIZED SWELLING, MASS AND LUMP, UNSPECIFIED LOWER LIMB TECHNIQUE: Procedure Code: CTELW Modality: CT Procedure: EXTREMITY LOWER WITH CONTRAST Coronal and Sagittal reconstruction series were provided. CONTRAST: None One or more dose reduction techniques were used (e.g., Automated exposure control, adjustment of the mA and/or kV according to patient size, use of iterative reconstruction technique). RADIATION DOSE SUMMARY: DLP: 883 mGycm COMPARISON: None FINDINGS: A soft tissue marker is noted in the medial anterior soft tissues, proximal 1/3, with no visible underlying mass or cyst. There is no fracture or dislocation identified. There is mild medial joint space narrowing at the knee. There is no suspicious lytic or blastic lesion. There is no adenopathy. There is no significant atherosclerosis. CT/Extremity Lower WITH Contrast IMPRESSION: A soft tissue marker is noted in the medial anterior soft tissues, proximal 1/3 , with no visible underlying mass or cyst. Consider MRI with and without contrast for further evaluation if there is clini miguel suspicion of a soft tissue mass. Reading Location: [id number]
== END | disposition home or self-care (01) ==
LOC: CT 14:41
PROVIDERS: PCP Family Medicine; Referring Provider Family Medicine; Visit Provider Family Medicine
DX: R22.40 Localized swelling, mass and lump, unspecified lower limb (principal)
CPT/HCPCS: 73701; Q9967

== ENCOUNTER → 2025-08-11 | Outpatient (CLI) | payer MEDICARE, MEDICAID, SELFPAY ==
--- OUTSIDE RECORDS SUMMARY | 2025-08-11 16:52 | XMS RPT_ITS | CCD ---
Author Organization [facility] Care Team Providers Care Substation Operator Name Role Phone Unavailable Primary Care Provider Unavailaugustus e Dr. Aneudy Win Primary Care Provider Quirino, Dr. Amado Referring Provider Dr. Melissa Munoz Attending Provider Tammy, Dr. Torres Referring Provider Tammy, Dr. Torres Other Provider Quirino, Dr. Amado Primary Care Provider Quirino, Dr. Amado Referring Provider Dr. Melissa Munoz Attending Provider Quirino HOPKINS, Dr. Amado Primary Care Provider Quirino HOPKINS, Dr. Amado Attending Provider Quirino HOPKINS, Dr. Amado Referring Provider Quirino HOPKINS, Dr. Amado Primary Care Provider Quirino HOPKINS, Dr. Amado Attending Provider Quirino HOPKINS, Dr. Amado Referring Provider Quirino HOPKINS, Dr. Amado Primary Care Physician Quirino HOPKINS, Dr. Amado Attending Physician Quirino HOPKINS, Dr. Amado Referring Provider Quirino, Aneudy Attending Unavailable Quirino, Aneudy Referring Unavailable Win, Aneudy Primary Care Unavailable Win, Aneudy Attending Unavailable Win, Aneudy Referring Unavailable Win, Aneudy Primary Care Unavailable Kj Man Attending Unavailable Win, Aneudy Referring Unavailable Win, Aneudy Primary Care Unavailable Win, Aneudy Referring Unavailable Win, Aneudy Primary Care Unavailable Win, Aneudy Attending Unavailable Win, Aneudy Referring Unavailable Win, Aneudy Primary Care Unavailable Win, Aneudy Attending Unavailable Win, Aneudy Attending Unavailable Win, Aneudy Referring Unavailable Win, Aneudy Primary Care Unavailable Win, Aneudy Referring Unavailable Win, Aneudy Primary Care Unavailable Win, Aneudy Attending Unavailable Win, Aneudy Attending Unavailable Win, Aneudy Referring Unavailable Win, Aneudy Primary Care Unavailable Donovan HOPKINS, Dr. Underwood Attending Physician [phone] Allergies Allergy Classification Reported Allergen(s) Allergy Type Date of Onset Reaction(s) Facility (16 sources) Meperidine Drug Allergy 1 Other [facility] (16 sources) Morphine Drug Allergy 1 Itching [facility] (17 sources) Sulfonamides (Antibiotic); Translations: [Sulfa (Sulfonamide Antibiotics)] Allergy to substance 1 Hives [facility] (1 source) Meperidine Drug Allergy 5 [facility] Repository (1 source) Morphine Drug Allergy 5 [facility] Repository Medications Current Medications Medication Drug Class(es) Dates Sig (Normalized) Sig (Original) brexpiprazole 0.5 mg oral tablet (5 sources) Atypical Antipsychotic Start: 08-12-2024 take 1 tablet by mouth once daily Brexpiprazole (Rexulti) 0.5 mg tablet Active 0.5 mg PO DAILY August 12, 2024 1:00am Complies with drug therapy calcium carbonate 1500 mg oral tablet (11 sources) Start: 03-05-2023 take 1 tablet by mouth once daily Calcium Carbonate (Calcium 600) 600 mg calcium (1,500 mg) tablet Active 600 mg PO DAILY March 05, 2023 12:00am Complies with drug therapy cholecalciferol 0.05 mg oral capsule (11 sources) Vitamin D Start: 03-05-2023 take 1 capsule by mouth once daily Cholecalciferol (Vitamin D3) 50 mcg (2,000 unit) capsule Active 50 ug PO DAILY March 05, 2023 12:00am Complies with drug therapy escitalopram 10 mg oral tablet (11 sources) Serotonin Reuptake Inhibitor Start: 03-05-2023 take 2 tablets by mouth once daily Escitalopram Oxalate (Lexapro) 10 mg tablet Active 20 mg PO DAILY March 05, 2023 12:00am Complies with drug therapy Start: 03-05-2023 take 1 tablet by jose th once daily Escitalopram Oxalate (Lexapro) 10 mg tablet Active 10 MG PO DAILY March 05, 2023 12:00am gabapentin 300 mg oral capsule (16 sources) Anti-epileptic Agent Start: 08-12-2024 take 2 capsules by mouth every eight hours Gabapentin 300 mg capsule Active 600 mg PO Q8H August 12, 2024 1:00am Complies with drug therapy Start: 08-12-2024 take 2 capsules by m outh once daily Gabapentin 300 mg capsule Active 600 mg PO DAILY August 12, 2024 1:00am Start: 03-05-2023 End: 08-12-2024 take 1 tablet by mouth four times daily Gabapentin 800 mg tablet Discontinued 800 mg PO 4 TIMES DAILY March 05, 2023 12:00am August 12, 2024 3:08pm lamoTRIgine 100 mg oral tablet (11 sources) Mood Stabilizer, Anti-epileptic Agent Start: 03-05-2023 take 1 tablet by mouth twice daily Lamotrigine 100 mg tablet Active 100 mg PO TWICE A DAY March 05, 2023 12:00am Complies with drug therapy levothyroxine sodium 0.075 mg oral capsule (11 sources) l-Thyroxine Start: 03-05-2023 take 1 capsule by mouth once daily Levothyroxine 75 mcg capsule Active 75 ug PO DAILY March 05, 2023 12:00am Complies with drug therapy liothyronine sodium 0.005 mg oral tablet (11 sources) l-Triiodothyronine Start: 03-13-2023 take 1 tablet by mouth once daily Liothyronine 5 mcg Tablet Active 5 ug PO DAILY March 13, 2023 12:00am Complies with drug therapy LORazepam 0.5 mg oral tablet (11 sources) Benzodiazepine Start: 03-05-2023 take 1 tablet by mouth once daily as needed for anxiety Lorazepam (Ativan) 0.5 mg tablet Active 0.5 mg PO DAILY as needed for Anxiety March 05, 2023 12:00am Complies with drug therapy meloxicam 15 mg oral tablet (9 sources) Nonsteroidal Anti-inflammatory Drug Start: 08-06-2023 Meloxicam 15 mg tablet Active 15 mg PO NEEDED as needed for pain August 06, 2023 1:00am Complies with drug therapy methocarbamol 500 mg oral tablet (11 sources) Muscle Relaxant Start: 03-05-2023 take 1 tablet by mouth four times daily Methocarbamol 500 mg tablet Active 500 mg PO 4 TIMES DAILY March 05, 2023 12:00am Complies with drug therapy omeprazole 40 mg delayed release oral capsule (15 sources) Proton Pump Inhibitor Start: 02-24-2025 take 1 capsule by mouth once daily Omeprazole 40 mg capsule,delayed release(DR/EC) Active 40 mg PO DAILY February 24, 2025 12:00am Complies with drug therapy Start: 03-05-2023 End: 03-05-2023 Omeprazole Magnesium (Prilos ec Otc) 20 mg tablet,delayed release (DR/EC) Discontinued 40 mg PO DAILY March 05, 2023 12:00am March 05, 2023 3:29pm potassium gluconate 2.5 meq oral tablet (11 sources) Start: 03-05-2023 take 1 tablet by mouth once daily Potassium Gluconate 600 mg (99 mg) tablet Active 600 mg PO DAILY March 05, 2023 12:00am Complies with drug therapy rosuvastatin calcium 10 mg oral tablet (11 sources) HMG-CoA Reductase Inhibitor Start: 03-13-2023 take 1 tablet by mouth once daily Rosuvastatin (Crestor) 10 mg Tablet Active 10 mg PO DAILY March 13, 2023 12:00am Complies with drug therapy Completed/Discontinued Medications Medication Drug Class(es) Dates Sig (Normalized) Sig (Original) acetaminophen 325 mg / oxyCODONE hydrochloride 5 mg oral tablet (11 sources) Opioid Agonist Start: 03-20-2023 End: 08-06-2023 Oxycodone-Acetaminoph en 5-325 mg tablet Discontinued 1 - 2 {tbl} PO EVERY 6 HOURS as needed for pain 14 3 0 March 20, 2023 August 06, 2023 4:21pm Postoperative pain Other acute postprocedural pain Start: 03-20-2023 End: 08-06-2023 take 1 tablet by mouth every six hours Oxycodone-Acetaminophen Discontinued 1 - 2 TABLET PO EVERY 6 HOURS 14 3 March 20, 2023 August 06, 2023 4:21pm dicyclomine hydrochloride 20 mg oral tablet (18 sources) Anticholinergic Start: 04-09-2023 End: 08-06-2023 take 1 tablet by mouth twice daily Dicyclomine 20 mg tablet Discontinued 20 mg PO TWICE A DAY 27 10April 09, 2023 12:00am April 09, 2023 4:05pm pantoprazole 40 mg delayed release oral tablet (11 sources) Proton Pump Inhibitor Start: 03-05-2023 End: 08-06-2023 take 1 tablet by mouth once daily Pantoprazole 40 mg tablet,delayed release (DR/EC) Discontinued 40 mg PO DAILY 25 01March 05, 2023 12:00am August 06, 2023 4:21pm Problems Active Problems Problem Classification Problem Date Documented Da te Episodic/Chronic Abdominal pain (11 sources) Abdominal pain; Translations: [Unspecified abdominal pain] 03-05-2023 Episodic Anxiety disorders (11 sources) Anxiety; Translations: [Anxiety disorder, unspecified] 03-05-2023 Chronic Biliary tract disease (13 sources) Biliary dyskinesia; Translations: [Other specified diseases of gallbladder] 03-18-2023 Episodic Comment on above: HIDA scan ejection f raction 60% Esophageal disorders (13 sources) Gastroesophageal reflux disease; Translations: [Gastro-esophageal reflux disease without esophagitis] 03-05-2023 Chronic Mood disorders (11 sources) Depressive disorder; Translations: [Depression] 03-05-2023 Chronic Osteoporosis (1 source) Age-related osteoporosis without current pathological fracture; Translations: [Age-related osteoporosis without current pathological fracture] Onset: Chronic Other gastrointestinal disorders (9 sources) Diarrhea; Translations: [Diarrhea, unspecified] 04-29-2023 Episodic Other gastrointestinal disorders (1 source) Diarrhea, unspecified; Translations: [Diarrhea] 04-29-2023 Episodic Other skin disorders (1 source) Localized swelling, mass and lump, unspecified lower limb; Translations: [Localized swelling, mass and lump, unspecified lower limb] Onset: Episodic Residual codes; unclassified (2 sources) Acquired absence of other specified parts of digestive tract; Translations: [Other postprocedural status] 04-09-2023 Episodic Residual codes; unclassified (2 sources) Localized edema; Translations: [Lipedema of lower extremity] 07-14-2025 Episodic Comment on above: Bilateral, worse on the right Thyroid disorders (2 sources) Hypothyroidism, unspecified; Translations: [Hypothyroidism, unspecified] Onset: Chronic Thyroid disorders (11 sources) Disorder of thyroid gland; Translations: [Disorder of thyroid, unspecified] 03-05-2023 Episodic Past or Other Problems Problem Classification Problem Date Documented Da te Episodic/Chronic Spondylosis; intervertebral disc disorders; other back problems (1 source) Dorsalgia, unspecified; Translations: [Dorsalgia, unspecified] Onset: 02-02-2025 Episodic Results Test Name Value Interpretation Reference Range Facility Plastic Surgery Visit Report on 07-14-2025 Plastic Surgery Visit Report [facility]astic [facility] Surgery [address], [address] [place] [address] OFFICE VISIT Date of Service: 07/14/25 MR#: [id number] Acct: [id number] Name: PATY INGRAM Rep #: [id number] : 1960 Provider: Dr. Kj Man MD Age/Sex: 65/F Location: [facility] Status: Signed Intake Vital Signs 3 02/24/25 12:29 07/14/25 14:56 Height 5 ft 1 in Weight: 179 lb BP 116/80 Blood Pressure Location Rt brachial Position Sitting Respiration 18 Pulse 82 Pulse Source Monitor Pulse Oximetry (%) 91 Oxygen Delivery Method room air Intake Visit Reasons: LUMP ON LEG Chief Complaint: Lump on leg Is patient in pain?: No Allergies morphine Allergy (Verified 07/14/25 14:37) Itching Sulfa (Sulfonamide Antibiotics) Allergy (Verified 07/14/25 14:37) Hives meperidine (From Demerol) Adverse Reaction (Verified 07/14/25 14:37) Other Medications 3 ???Medication ???Instructions ???Recorded ???Confirmed ???Type calcium carbonate (Calcium 600) 600 mg PO DAILY 03/05/23 07/14/25 History cholecalciferol (vitamin D3) 50 50 mcg PO DAILY 03/05/23 07/14/25 History mcg (2,000 unit) capsule escitalopram oxalate 10 mg tablet 20 mg PO DAILY 03/05/23 07/14/25 History (Lexapro) lamotrigine 100 mg tablet 100 mg PO BID 03/05/23 07/14/25 Hi story levothyroxine 75 mcg capsule 75 mcg PO DAILY 03/05/23 07/14/25 History lorazepam 0.5 mg tablet (Ativan) 0.5 mg PO DAILY PRN Anxiety 07/14/25 History methocarbamol 500 mg tablet 500 mg PO 4X/DAY 03/05/23 07/14/25 History potassium gluconate 600 mg (99 mg) 600 mg PO DAILY 03/05/23 5 History tablet liothyronine 5 mcg tablet 5 mcg PO DAILY 03/13/23 07/14/25 H istory rosuvastatin 10 mg tablet (Crestor) 10 mg PO DAILY 03/13/23 5 History meloxicam 15 mg tablet 15 mg PO PRN PRN pain 08/06/23 History brexpiprazole 0.5 mg tablet 0.5 mg PO DAILY 08/12/24 07/14/25 History (Rexulti) gabapentin 300 mg capsule 600 mg PO Q8H 08/12/24 07/14/25 Hi story omeprazole 40 mg capsule,delayed 40 mg PO DAILY 02/24/25 07/14/25 H istory release Have you fallen in the past year?: No PFSH Medical History Wears glasses Wears dentures Post-menopausal High cholesterol PTSD (post-traumatic stress disorder) Bipolar disorder Depression Anxiety Thyroid disease Arthritis Anemia Neuropathy Fibromyalgia Back pain Injury of back Migraine headache History of hiatal hernia Gastric reflux Smoker History of pain when walking History of edema History of stress test Surgical History S/P laparoscopic cholecystectomy Hx of tubal ligation Hx of colonoscopy History of cystoscopy H/O hernia repair H/O thyroidectomy History of hysterectomy Family History Mother Heart disease Hypertension Cancer skin Father Hypertension Social History Smoking Status: Current every day smoker tobacco type: cigarettes alcohol intake: never substance use type: does not use HPI LUMP ON LEG Details: Patient is delightful 65-year-old female with approximately 6-month history of an area of swelling on the medial legs bilaterally, worse on the right. Her PCP was concerned for a DVT so he got an ultrasound which did not demonstrate any DVT. He also ordered a CT scan which did not demonstrate any abnormalities in the location of the palpable masses. She reports that these areas are tender to palpation. She reports 35 pounds weight gain recently ROS General General: Yes good health and fatigue; No fever(s) or weight loss HENMT HENMT: No rhinitis, sore throat/mouth sore, nasal congestion, contacts or glaucoma Endo Endocrine: Yes thyroid disease, heat intolerance and cold intolerance; No polydipsia, hepatitis or excessive urine Skin Skin: No Bleeding, bruising, changing moles or suspicious lesion Musc Musculoskeletal: Yes joint pain, joint stiffness, muscle weakness, back pain and osteoarthritis; No Muscle aches/ myalgia Neuro Neurological: No headache(s), Yes lightheadedness and No numbness Cardio Cardiovascular: Yes fatigue; No chest pain, pacemaker or shortness of breat with exertion Psych Psychiatric: Yes depression and claustrophobia; No anxiety Resp Respiratory: No spitting up, shortness of breath, sleep apnea, asthma, emphysema, TB, Cough or Smoker Gastro Gastrointestinal: Yes diarrhea and constipation; No blood in stool, nausea, vomiting or abdominal bloating Gerry Hematologic: No anemia, No bleeding and No abnormal bleeding Genitourinary: Yes incontinence; No urinary f (more content not included)... Normal [facility] Extremity Lower WITH Contras ton 06-16-2025 Extremity Lower WITH Contrast [facility] [address] [place] [address] [id number] Extremity Lower WITH Contrast MR#: [id number] Acct: [id number] Name: PATY INGRAM ALAN Rep #: [id number] : 1960 F 65 From: Toni Madera MD PCP: Dr. Aneudy Win MD Status: REG CLI Study: Extremity Lower WITH Contrast Date of Exam: Exam# [id number] Ordering Dr: Aneudy Win MD PROCEDURE: EXTREMITY LOWER WITH CONTRAST 06/16/2025 REASON FOR EXAM: LOCALIZED SWELLING, MASS AND LUMP, UNSPECIFIED LOWER LIMB TECHNIQUE: Procedure Code: CTELW Modality: CT Procedure: EXTREMITY LOWER WITH CONTRAST Coronal and Sagittal reconstruction series were provided. CONTRAST: None One or more dose reduction techniques were used (e.g., Automated exposure control, adjustment of the mA and/or kV according to patient size, use of iterative reconstruction technique). RADIATION DOSE SUMMARY: DLP: 883 mGycm COMPARISON: None FINDINGS: A soft tissue marker is noted in the medial anterior soft tissues, proximal 1/3, with no visible underlying mass or cyst. There is no fracture or dislocation identified. There is mild medial joint space narrowing at the knee. There is no suspicious lytic or blastic lesion. There is no adenopathy. There is no significant atherosclerosis. CT/Extremity Lower WITH Contrast IMPRESSION: A soft tissue marker is noted in the medial anterior soft tissues, proximal 1/3, with no visible underlying mass or cyst. Consider MRI with and without contrast for further evaluation if there is clinical suspicion of a soft tissue mass. Reading Location: [facility] CC: Dr. Aneudy Win MD Oil Analyst: Signed Normal [facility] Ext Non Vasc Limited/Soft Ti sson 04-28-2025 Ext Non Vasc Limited/Soft Tiss [facility] [address] [place] [id number] Ext Non Vasc Limited/Soft Tiss MR#: [id number] Acct: [id number] Name: PATY INGRAM Rep #: [id number] : 1960 F 65 From: Ayo Mishra DO PCP: Dr. Aneudy Win MD Status: REG CLI Study: Ext Non Vasc Limited/Soft Tiss Date of Exam: 0 04/28/25 Exam# [id number] Ordering Dr: Aneudy Win MD PROCEDURE: EXT NON VASC LIMITED/SOFT TISSUE 04/28/2025 REASON FOR EXAM: LOCALIZED SWELLING, MASS AND LUMP, UNSPECIFIED LOWER LIMB TECHNIQUE: EXT NON VASC LIMITED/SOFT TISSUE COMPARISON: None. FINDINGS: The area of the concern is scanned and no objects are found which are not normal tissue. US/Ext Non Vasc Limited/Soft Tiss IMPRESSION: No abnormality seen at the area of concern in the right leg.. Reading Location: [facility] CC: Dr. Aneudy Win MD Oil Analyst: Signed Normal [facility] L/S Spine Min 4 Viewson L/S Spine Min 4 Views [facility] [address] [place] [address] L/S Spine Min 4 Views MR#: [id number] Acct: [id number] Name: PATY INGRAM Rep #: [id number] : 1960 F 64 From: Kj Marie MD PCP: Dr. Aneudy Win MD Status: REG CLI Study: L/S Spine Min 4 Views Date of Exam: 01/27/25 Exam# [id number] Ordering Dr: Aneudy Win MD PROCEDURE: L/S SPINE MIN 4 VIEWS 01/27/2025 REASON FOR EXAM: BACK PAIN TECHNIQUE: Four views; AP, lateral and bilateral oblique COMPARISON: None available FINDINGS: Large hiatal hernia. For nomenclature purposes there is a partially lumbarized S1 segment. No fracture or malalignment. Mild leftward curvature. There appears to be possible osteopenia. No definite spondylolysis identified. L3-4 mild disc space narrowing L4-5 mild disc space narrowing Abdominal aortic atherosclerotic calcification. Ovoid calcific density to the right of the lumbar spine around the L4-5 level unclear if this is bowel contents or possibility of a kidney stone or other intra-abdominal calcification such as a calcified lymph node or other lesion. RAD/L/S Spine Min 4 Views IMPRESSION: Large hiatal hernia. Spondylosis/discogen ic change as above. Ovoid calcific density to the right of the lumbar spine around the L4-5 level unclear if this is bowel contents or possibility of a kidney stone or other intra-abdominal calcification such as a calcified lymph node or other lesion. Reading Location: [facility] CC: Dr. Aneudy Win MD Oil Analyst: Signed Normal [facility] Direct serum free thyroxine (FT4) measurementOrdered By: Aneudy Win on 11-17-2024 Free T4 [Mass/Vol] 0.91 ng/dL 0.76-1.46 [facility] Free T3on 11-17-2024 Free T3 [Mass/Vol] 2.6 pg/mL Normal 2.18-3.98 [facility] Comment on above: Performed By: #### L [id number], L501.13296, L506.0400, L500.4100 #### [facility] [address] [place], [address] Free [id number] By: Aneudy tse on 11-17-2024 Free T3 [Mass/Vol] 2.6 pg/mL 2.18-3.98 [facility] High density lipoprotein (HD L) measurementOrdered By: Aneudy Win on 11-17-2024 Cholesterol in HDL [Mass/Vol] 46 mg/dL >40 [facility] Comment on above: The drugs N-Acetylcy steine and Metamizole may falsely depress this assay. Reference Range HDL <40 mg/dL Low HDL Cholesterol HDL >or= 60 mg/dL High HDL Cholesterol Lipid Profileon 11-17-2024 Cholesterol [Mass/Vol] 155 mg/dL Normal 200 [facility] Comment on above: Result Comment: <200 mg/dL Desirable 200-240 mg/dL Borderline >240 mg/dL High Risk Performed By: #### L [id number], L501.01962, L506.0400, L500.4100 #### [facility] [address] [place], [address] Cholesterol in HDL [Mass/Vol] 46 mg/dL Normal [facility] Comment on above: Result Comment: The drugs N-Acetylcysteine and Metamizole may falsely depress this assay. Reference Range HDL <40 mg/dL Low HDL Cholesterol HDL >or= 60 mg/dL High HDL Cholesterol Performed By: #### L [id number], L501.05161, L506.0400, L500.4100 #### [facility] [address] [place], [address] Cholesterol in LDL [Mass/Vol] 58 mg/dL Normal 0-130 [facility] Comment on above: Performed By: #### L [id number], L501.35661, L506.0400, L500.4100 #### [facility] [address] [place], [address] Cholesterol in VLDL [Mass/Vol] 51 mg/dL High 5-40 [facility] Comment on above: Performed By: #### L [id number], L501.28000, L506.0400, L500.4100 #### [facility] [address] [place], [address] Triglyceride [Mass/Vol] 254 mg/dL High [facility] Comment on above: Result Comment: The drugs N-Acetylcysteine and Metamizole may falsely depress this assay. Serum Triglycerides Reference Interval Normal <150 mg/dL Borderline high 150 - 199 mg/dL High 200 - 499 mg/dL Very High > or = 500 mg/dL Performed By: #### L [id number], L501.56206, L506.0400, L500.4100 #### [facility] [address] [place], [address] Low density lipoprotein (LDL ) cholesterol measurementOrdered By: Aneudy Win on 11-17-2024 Cholesterol in LDL [Mass/Vol] 58 mg/dL 0-130 [facility] Serum or plasma cholesterol measurement (mass/volume)Ordered By: Aneudy Win on 11-17-2024 Cholesterol [Mass/Vol] 155 mg/dL <200 [facility] Comment on above: <200 mg/dL Desirable 200-240 mg/dL Borderline >240 mg/dL High Risk Serum or plasma thyroid stim ulating hormone (TSH) measurement (units/volume)Ordered By: Aneudy Win on 11-17-2024 TSH Qn 0.628 uIU/mL 0.358-3.740 [facility] T4 Free Directon 11-17-2024 T4 FREE DIRECT 0.91 ng/dL Normal 0.76-1.46 [facility] Comment on above: Performed By: #### L [id number], L501.14476, L506.0400, L500.4100 #### [facility] [address] [place], [address] Thyroid Stim Hormone (TSH)on 11-17-2024 TSH 0.628 uIU/mL Normal 0.358-3.740 [facility] Comment on above: Performed By: #### L [id number], L501.21894, L506.0400, L500.4100 #### [facility] [address] [place], [address] Triglycerides measurementOrd ered By: Aneudy Win on 11-17-2024 Triglyceride [Mass/Vol] 254 mg/dL High <199 [facility] Comment on above: The drugs N-Acetylcy steine and Metamizole may falsely depress this assay.Serum Triglycerides Reference Interval Normal <150 mg/dL Borderline high 150 - 199 mg/dL High 200 - 499 mg/dL Very High > or = 500 mg/dL Very low density lipoprotein (VLDL) cholesterol measurementOrdered By: Aneudy Win on 11-17-2024 Very low density lipoprotein (VLDL) cholesterol measurement 51 mg/dL High 5-40 [facility] Basophil percentageOrdered B y: Aneudy Win on 12-17-2023 Bilirubin [Mass/Vol] 0.30 mg/dL 0.20-1.00 [facility] Comment on above: For patients on eltr ombopag therapy, use of Dimension [place] TBIL is not recommended. Chloride [Moles/Vol] 107 mmol/L 98-107 [facility] Cholesterol [Mass/Vol] 182 mg/dL <200 [facility] Comment on above: <200 mg/dL Desirable 200-240 mg/dL Borderline >240 mg/dL High Risk Glucose [Mass/Vol] 91 mg/dL 74-106 [facility] Potassium [Moles/Vol] 3.9 mmol/L 3.5-5.1 [facility] Protein [Mass/Vol] 7.7 g/dL 6.4-8.2 [facility] Sodium [Moles/Vol] 139 mmol/L 136-145 [facility] Triglyceride [Mass/Vol] 279 mg/dL <199 [facility] Comment on above: The drugs N-Acetylcy steine and Metamizole may falsely depress this assay.Serum Triglycerides Reference Interval Normal <150 mg/dL Borderline high 150 - 199 mg/dL High 200 - 499 mg/dL Very High > or = 500 mg/dL Laboratory - Chemistry and C hemistry - challengeOrdered By: Aneudy Win on 12-17-2023 Albumin/Globulin [Mass ratio] 1.0 {ratio} 0.9-2.4 [facility] ALP [Catalytic activity/Vol] 80 U/L 45-117 [facility] ALT [Catalytic activity/Vol] 20 U/L 13-56 [facility] Cholesterol in HDL [Mass/Vol] 42 mg/dL >40 [facility] Comment on above: The drugs N-Acetylcy steine and Metamizole may falsely depress this assay. Reference Range HDL <40 mg/dL Low HDL Cholesterol HDL >or= 60 mg/dL High HDL Cholesterol Cholesterol in LDL [Mass/Vol] 84 mg/dL 0-130 [facility] CO2 [Moles/Vol] 28.0 mmol/L 21.0-32.0 [facility] Globulin (S) [Mass/Vol] 3.8 g/dL 2.2-4.2 [facility] Urea nitrogen/Creatinine [Mass ratio] 9.0 mg/mg 10-20 [facility] No Panel InformationOrdered By: Aneudy Win on 12-17-2023 Estimated GFR (MDRD) Amer 96 mL/min >60 [facility] Comment on above: GFR Calc Estimated GFR (MDRD) Non-Af Amer 80 mL/min >60 [facility] Comment on above: Non- GFR Calc Free Triiodothyronine (T3) pg/dL 3.0 pg/mL 2.18-3.98 [facility] VLDL Cholesterol 56 mg/dL 5-40 [facility] Serum or plasma calcium subhash urement (mass/volume)Ordered By: Aneudy Win on 12-17-2023 Calcium [Mass/Vol] 9.3 mg/dL 8.5-10.1 [facility] Serum or plasma creatinine m easurement (mass/volume)Ordered By: Aneudy Win on 12-17-2023 Creatinine [Mass/Vol] 0.78 mg/dL 0.55-1.02 [facility] Comment on above: The validity of the calculated GFR & GFRAA in patients over 70 years has not been determined. Clinical correlation is essential. Serum or plasma thyroid stim ulating hormone (TSH) measurement (units/volume)Ordered By: Aneudy Win on 12-17-2023 TSH Qn 0.23 uIU/mL 0.358-3.74 [facility] Serum or plasma urea nitroge n measurement (mass/volume)Ordered By: Aneudy Win on 12-17-2023 Urea nitrogen [Mass/Vol] 7 mg/dL 7-18 [facility] Thin prep Papanicolaou smear with manual screeningOrdered By: Aneudy Win on 12-17-2023 Thin prep Papanicolaou smear with manual screening 3.9 g/dL 3.2-5.0 [facility] Thin prep Papanicolaou smear with manual screening 19 U/L 15-37 [facility] Thin prep Papanicolaou smear with manual screening 4 5-15 [facility] Thin prep Papanicolaou smear with manual screening 0.97 ng/dL 0.76-1.46 [facility] Basophil percentageOrdered B y: Aneudy Win on 09-17-2023 Bilirubin [Mass/Vol] 0.30 mg/dL 0.20-1.00 [facility] Comment on above: For patients on eltr ombopag therapy, use of [place] TBIL is not recommended. Chloride [Moles/Vol] 108 mmol/L 98-107 [facility] Cholesterol [Mass/Vol] 178 mg/dL <200 [facility] Comment on above: <200 mg/dL Desirable 200-240 mg/dL Borderline >240 mg/dL High Risk Glucose [Mass/Vol] 79 mg/dL 74-106 [facility] Potassium [Moles/Vol] 4.6 mmol/L 3.5-5.1 [facility] Protein [Mass/Vol] 7.1 g/dL 6.4-8.2 [facility] Sodium [Moles/Vol] 142 mmol/L 136-145 [facility] Triglyceride [Mass/Vol] 296 mg/dL <199 [facility] Comment on above: The drugs N-Acetylcy steine and Metamizole may falsely depress this assay.Serum Triglycerides Reference Interval Normal <150 mg/dL Borderline high 150 - 199 mg/dL High 200 - 499 mg/dL Very High > or = 500 mg/dL Laboratory - Chemistry and C hemistry - challengeOrdered By: Aneudy Win on 09-17-2023 ALP [Catalytic activity/Vol] 85 U/L 45-117 [facility] ALT [Catalytic activity/Vol] 16 U/L 13-56 [facility] CO2 [Moles/Vol] 29.0 mmol/L 21.0-32.0 [facility] Free T4 [Mass/Vol] 0.89 ng/dL 0.76-1.46 [facility] Globulin (S) [Mass/Vol] 3.2 g/dL 2.2-4.2 [facility] Urea nitrogen/Creatinine [Mass ratio] 13.4 mg/mg 10-20 [facility] No Panel InformationOrdered By: Aneudy Win on 09-17-2023 Estimated GFR (MDRD) Amer 101 mL/min >60 [facility] Comment on above: GFR Calc Estimated GFR (MDRD) Non-Af Amer 83 mL/min >60 [facility] Comment on above: Non- GFR Calc Free Triiodothyronine (T3) pg/dL 3.0 pg/mL 2.18-3.98 [facility] Thyroid Stimulating Hormone (TSH) 0.22 uIU/mL 0.358-3.74 [facility] Serum or plasma albumin subhash urement (mass/volume)Ordered By: Aneudy Win on 09-17-2023 Albumin [Mass/Vol] 3.9 g/dL 3.2-5.0 [facility] Serum or plasma albumin/glob ulin mass ratioOrdered By: Aneudy Win on 09-17-2023 Albumin/Globulin [Mass ratio] 1.2 {ratio} 0.9-2.4 [facility] Serum or plasma calcium subhash urement (mass/volume)Ordered By: Aneudy Win on 09-17-2023 Calcium [Mass/Vol] 9.3 mg/dL 8.5-10.1 [facility] Serum or plasma cholesterol in HDL measurement (mass/volume)Ordered By: Aneudy Win on 09-17-2023 Cholesterol in HDL [Mass/Vol] 44 mg/dL >40 [facility] Comment on above: The drugs N-Acetylcy steine and Metamizole may falsely depress this assay. Reference Range HDL <40 mg/dL Low HDL Cholesterol HDL >or= 60 mg/dL High HDL Cholesterol Serum or plasma cholesterol in VLDL measurement (mass/volume)Ordered By: Aneudy Win on 09-17-2023 Cholesterol in VLDL [Mass/Vol] 59 mg/dL 5-40 [facility] Serum or plasma creatinine m easurement (mass/volume)Ordered By: Aneudy Win on 09-17-2023 Creatinine [Mass/Vol] 0.75 mg/dL 0.55-1.02 [facility] Comment on above: The validity of the calculated GFR & GFRAA in patients over 70 years has not been determined. Clinical correlation is essential. Serum or plasma low density lipoprotein (LDL) cholesterol measurement (mass/volume)Ordered By: Aneudy Win on 09-17-2023 Cholesterol in LDL [Mass/Vol] 75 mg/dL 0-130 [facility] Serum or plasma urea nitroge n measurement (mass/volume)Ordered By: Aneudy Win on 09-17-2023 Urea nitrogen [Mass/Vol] 10 mg/dL 7-18 [facility] Thin prep Papanicolaou smear with manual screeningOrdered By: Aneudy Win on 09-17-2023 Thin prep Papanicolaou smear with manual screening 19 U/L 15-37 [facility] Thin prep Papanicolaou smear with manual screening 5 5-15 [facility] Basophil percentageOrdered B y: Aneudy Win on 06-18-2023 Bilirubin [Mass/Vol] 0.30 mg/dL 0.20-1.00 [facility] Comment on above: For patients on eltr ombopag therapy, use of [place] TBIL is not recommended. Chloride [Moles/Vol] 106 mmol/L 98-107 [facility] Cholesterol [Mass/Vol] 184 mg/dL <200 [facility] Comment on above: <200 mg/dL Desirable 200-240 mg/dL Borderline >240 mg/dL High Risk Glucose [Mass/Vol] 87 mg/dL 74-106 [facility] Potassium [Moles/Vol] 4.1 mmol/L 3.5-5.1 [facility] Protein [Mass/Vol] 7.7 g/dL 6.4-8.2 [facility] Sodium [Moles/Vol] 139 mmol/L 136-145 [facility] Triglyceride [Mass/Vol] 232 mg/dL <199 [facility] Comment on above: The drugs N-Acetylcy steine and Metamizole may falsely depress this assay.Serum Triglycerides Reference Interval Normal <150 mg/dL Borderline high 150 - 199 mg/dL High 200 - 499 mg/dL Very High > or = 500 mg/dL Laboratory - Chemistry and C hemistry - challengeOrdered By: Aneudy Win on 06-18-2023 ALP [Catalytic activity/Vol] 94 U/L 45-117 [facility] ALT [Catalytic activity/Vol] 20 U/L 13-56 [facility] CO2 [Moles/Vol] 27.0 mmol/L 21.0-32.0 [facility] Free T4 [Mass/Vol] 0.66 ng/dL 0.76-1.46 [facility] Globulin (S) [Mass/Vol] 3.7 g/dL 2.2-4.2 [facility] Urea nitrogen/Creatinine [Mass ratio] 12.7 mg/mg 10-20 [facility] No Panel InformationOrdered By: Aneudy Win on 06-18-2023 Estimated GFR (MDRD) Amer 84 mL/min >60 [facility] Comment on above: GFR Calc Estimated GFR (MDRD) Non-Af Amer 70 mL/min >60 [facility] Comment on above: Non- GFR Calc Free Triiodothyronine (T3) pg/dL 2.3 pg/mL 2.18-3.98 [facility] Thyroid Stimulating Hormone (TSH) 4.02 uIU/mL 0.358-3.74 [facility] Serum or plasma albumin subhash urement (mass/volume)Ordered By: Aneudy Win on 06-18-2023 Albumin [Mass/Vol] 4.0 g/dL 3.2-5.0 [facility] Serum or plasma albumin/glob ulin mass ratioOrdered By: Aneudy Win on 06-18-2023 Albumin/Globulin [Mass ratio] 1.1 {ratio} 0.9-2.4 [facility] Serum or plasma calcium subhash urement (mass/volume)Ordered By: Aneudy Win on 06-18-2023 Calcium [Mass/Vol] 9.3 mg/dL 8.5-10.1 [facility] Serum or plasma cholesterol in HDL measurement (mass/volume)Ordered By: Aneudy Win on 06-18-2023 Cholesterol in HDL [Mass/Vol] 46 mg/dL >40 [facility] Comment on above: The drugs N-Acetylcy steine and Metamizole may falsely depress this assay. Reference Range HDL <40 mg/dL Low HDL Cholesterol HDL >or= 60 mg/dL High HDL Cholesterol Serum or plasma cholesterol in VLDL measurement (mass/volume)Ordered By: Aneudy Win on 06-18-2023 Cholesterol in VLDL [Mass/Vol] 46 mg/dL 5-40 [facility] Serum or plasma creatinine m easurement (mass/volume)Ordered By: Aneudy Win on 06-18-2023 Creatinine [Mass/Vol] 0.87 mg/dL 0.55-1.02 [facility] Comment on above: The validity of the calculated GFR & GFRAA in patients over 70 years has not been determined. Clinical correlation is essential. Serum or plasma low density lipoprotein (LDL) cholesterol measurement (mass/volume)Ordered By: Aneudy Win on 06-18-2023 Cholesterol in LDL [Mass/Vol] 92 mg/dL 0-130 [facility] Serum or plasma urea nitroge n measurement (mass/volume)Ordered By: Aneudy Win on 06-18-2023 Urea nitrogen [Mass/Vol] 11 mg/dL 7-18 [facility] Thin prep Papanicolaou smear with manual screeningOrdered By: Aneudy Win on 06-18-2023 Thin prep Papanicolaou smear with manual screening 16 U/L 15-37 [facility] Thin prep Papanicolaou smear with manual screening 6 5-15 [facility] Basophil percentageOrdered B y: Dr. Win on 01-22-2023 Chloride [Moles/Vol] 105 mmol/L 98-107 [facility] Glucose [Mass/Vol] 94 mg/dL 74-106 [facility] Potassium [Moles/Vol] 3.5 mmol/L 3.5-5.1 [facility] Sodium [Moles/Vol] 136 mmol/L 136-145 [facility] Laboratory - Chemistry and C hemistry - challengeOrdered By: Dr. Win on 01-22-2023 CO2 [Moles/Vol] 26.0 mmol/L 21.0-32.0 [facility] Urea nitrogen/Creatinine [Mass ratio] 13.6 mg/mg 10-20 [facility] No Panel InformationOrdered By: Dr. Win on 01-22-2023 Estimated GFR (MDRD) Amer 103 mL/min >60 [facility] Comment on above: GFR Calc Estimated GFR (MDRD) Non-Af Amer 85 mL/min >60 [facility] Comment on above: Non- GFR Calc Serum or plasma calcium subhash urement (mass/volume)Ordered By: Dr. Win on 01-22-2023 Calcium [Mass/Vol] 9.6 mg/dL 8.5-10.1 [facility] Serum or plasma creatinine m easurement (mass/volume)Ordered By: Dr. Win on 01-22-2023 Creatinine [Mass/Vol] 0.73 mg/dL 0.55-1.02 [facility] Comment on above: The validity of the calculated GFR & GFRAA in patients over 70 years has not been determined. Clinical correlation is essential. Serum or plasma urea nitroge n measurement (mass/volume)Ordered By: Dr. Win on 01-22-2023 Urea nitrogen [Mass/Vol] 10 mg/dL 7-18 [facility] Thin prep Papanicolaou smear with manual screeningOrdered By: Dr. Win on 01-22-2023 Thin prep Papanicolaou smear with manual screening 5 5-15 [facility] Absolute lymphocyte countOrd ered By: Dr. Win on 12-18-2022 Lymphocytes Auto (Unsp spec) [#/Vol] 2.15 10*3/uL 0.83-4.51 [facility] Basophil percentageOrdered B y: Dr. Win on 12-18-2022 Basophils/100 WBC (Bld) 0.2 % 0-1 [facility] Bilirubin [Mass/Vol] 0.30 mg/dL 0.20-1.00 [facility] Comment on above: For patients on eltr ombopag therapy, use of [place] TBIL is not recommended. Chloride [Moles/Vol] 107 mmol/L 98-107 [facility] Eosinophils/100 WBC (Bld) 0.7 % 0-5 [facility] Glucose [Mass/Vol] 90 mg/dL 74-106 [facility] Neutrophils (Bld) [#/Vol] 6.2 10*3/uL 2.0-7.7 [facility] Neutrophils/100 WBC (Bld) 69.3 % 47-70 [facility] Potassium [Moles/Vol] 3.2 mmol/L 3.5-5.1 [facility] Protein [Mass/Vol] 7.5 g/dL 6.4-8.2 [facility] Sodium [Moles/Vol] 140 mmol/L 136-145 [facility] WBC (Bld) [#/Vol] 8.9 10*3/uL 4.4-11.0 [facility] Blood erythrocytes count (nu mber/volume)Ordered By: Dr. Win on 12-18-2022 RBC (Bld) [#/Vol] 4.59 10*6/uL 4.2-5.4 [facility] Blood hemoglobin measurement (mass/volume)Ordered By: Dr. Win on 12-18-2022 Hemoglobin (Bld) [Mass/Vol] 12.9 g/dL 12.0-15.0 [facility] Blood lymphocytes/100 leukoc ytesOrdered By: Dr. Win on 12-18-2022 Lymphocytes/100 WBC (Bld) 24.0 % 19-41 [facility] Blood monocytes/100 leukocyt esOrdered By: Dr. Win on 12-18-2022 Monocytes/100 WBC (Bld) 5.6 % 0-10 [facility] Blood platelet mean volumeOr dered By: Dr. Win on 12-18-2022 Platelet mean volume (Bld) [Entitic vol] 9.9 fL 6.2-12.0 [facility] Determination of erythrocyte mean corpuscular volume (MCV)Ordered By: Dr. Win on 12-18-2022 MCV (RBC) [Entitic vol] 92.4 fL 81-99 [facility] Hematocrit Auto (Bld) [Volum e fraction]Ordered By: Dr. Win on 12-18-2022 Hematocrit (Bld) [Volume fraction] 42.4 % 37-47 [facility] Laboratory - Chemistry and C hemistry - challengeOrdered By: Dr. Win on 12-18-2022 ALP [Catalytic activity/Vol] 78 U/L 45-117 [facility] ALT [Catalytic activity/Vol] 18 U/L 13-56 [facility] CO2 [Moles/Vol] 24.0 mmol/L 21.0-32.0 [facility] Globulin (S) [Mass/Vol] 3.6 g/dL 2.2-4.2 [facility] Lipase [Catalytic activity/Vol] 107 U/L 73-393 [facility] Urea nitrogen/Creatinine [Mass ratio] 14.5 mg/mg 10-20 [facility] Laboratory - Hematology and Cell countsOrdered By: Dr. Win on 12-18-2022 Erythrocyte distribution width (RBC) [Entitic vol] 46.3 fL 35.1-43.9 [facility] Erythrocyte distribution width (RBC) [Ratio] 13.7 % 11.6-14.6 [facility] Immature granulocytes/100 WBC (Bld) 0.200 % 0.0-0.9 [facility] Comment on above: IG% - Immature Granu locytes (promyelocytes, myelocytes and metamyelocytes) > 1% indicates that a LEFT SHIFT is Present. MCH (RBC) [Entitic mass] 28.1 pg 27.0-32.0 [facility] Nucleated RBC/100 WBC (Bld) [Ratio] 0 % 0-5 [facility] MCHC Auto (RBC) [Mass/Vol]Or dered By: Dr. Win on 12-18-2022 MCHC (RBC) [Mass/Vol] 30.4 g/dL 32-36 [facility] No Panel InformationOrdered By: Dr. Win on 12-18-2022 Estimated GFR (MDRD) Amer 111 mL/min >60 [facility] Comment on above: GFR Calc Estimated GFR (MDRD) Non-Af Amer 91 mL/min >60 [facility] Comment on above: Non- GFR Calc Thyroid Stimulating Hormone (TSH) 2.80 uIU/mL 0.358-3.74 [facility] Platelets bldOrdered By: Dr. Win on 12-18-2022 Platelets (Bld) [#/Vol] 429 10*3/uL 150-450 [facility] Serum or plasma albumin subhash urement (mass/volume)Ordered By: Dr. Win on 12-18-2022 Albumin [Mass/Vol] 3.9 g/dL 3.2-5.0 [facility] Serum or plasma albumin/glob ulin mass ratioOrdered By: Dr. Win on 12-18-2022 Albumin/Globulin [Mass ratio] 1.1 {ratio} 0.9-2.4 [facility] Serum or plasma calcium subhash urement (mass/volume)Ordered By: Dr. Win on 12-18-2022 Calcium [Mass/Vol] 9.0 mg/dL 8.5-10.1 [facility] Serum or plasma creatinine m easurement (mass/volume)Ordered By: Dr. Win on 12-18-2022 Creatinine [Mass/Vol] 0.69 mg/dL 0.55-1.02 [facility] Comment on above: The validity of the calculated GFR & GFRAA in patients over 70 years has not been determined. Clinical correlation is essential. Serum or plasma urea nitroge n measurement (mass/volume)Ordered By: Dr. Win on 12-18-2022 Urea nitrogen [Mass/Vol] 10 mg/dL 7-18 [facility] Thin prep Papanicolaou smear with manual screeningOrdered By: Dr. Win on 12-18-2022 Thin prep Papanicolaou smear with manual screening 17 U/L 15-37 [facility] Thin prep Papanicolaou smear with manual screening 9 5-15 [facility] Basophil percentageon 2021 Bilirubin [Mass/Vol] 0.20 mg/dL 0.20-1.00 [facility] Work Phone: Comment on above: For patients on eltr ombopag therapy, use of [place] TBIL is not recommended. Chloride [Moles/Vol] 107 mmol/L 98-107 [facility] Work Phone: Cholesterol [Mass/Vol] 188 mg/dL <200 [facility] Work Phone: Comment on above: <200 mg/dL Desirable 200-240 mg/dL Borderline >240 mg/dL High Risk Glucose [Mass/Vol] 68 mg/dL 74-106 [facility] Work Phone: Potassium [Moles/Vol] 3.6 mmol/L 3.5-5.1 [facility] Work Phone: Protein [Mass/Vol] 7.5 g/dL 6.4-8.2 [facility] Work Phone: Sodium [Moles/Vol] 140 mmol/L 136-145 [facility] Work Phone: Triglyceride [Mass/Vol] 294 mg/dL <199 [facility] Work Phone: Comment on above: The drugs N-Acetylcy steine and Metamizole may falsely depress this assay.Serum Triglycerides Reference Interval Normal <150 mg/dL Borderline high 150 - 199 mg/dL High 200 - 499 mg/dL Very High > or = 500 mg/dL Laboratory - Chemistry and C hemistry - challengeon 07-25-2022 ALP [Catalytic activity/Vol] 97 U/L 45-117 [facility] Work Phone: ALT [Catalytic activity/Vol] 20 U/L 13-56 [facility] Work Phone: CO2 [Moles/Vol] 28.0 mmol/L 21.0-32.0 [facility] Work Phone: Free T4 [Mass/Vol] 0.73 ng/dL 0.76-1.46 [facility] Work Phone: Globulin (S) [Mass/Vol] 3.6 g/dL 2.2-4.2 [facility] Work Phone: Urea nitrogen/Creatinine [Mass ratio] 8.4 mg/mg 10-20 [facility] Work Phone: No Panel Informationon 10-28 -2022 Estimated GFR (MDRD) Amer 106 mL/min >60 [facility] Work Phone: Comment on above: GFR Calc Estimated GFR (MDRD) Non-Af Amer 87 mL/min >60 [facility] Work Phone: Comment on above: Non- GFR Calc Free Triiodothyronine (T3) pg/dL 2.8 pg/mL 2.18-3.98 [facility] Work Phone: Thyroid Stimulating Hormone (TSH) 1.28 uIU/mL 0.358-3.74 [facility] Work Phone: Serum or plasma albumin subhash urement (mass/volume)on 07-25-2022 Albumin [Mass/Vol] 3.9 g/dL 3.2-5.0 [facility] Work Phone: Serum or plasma albumin/glob ulin mass ratioon 07-25-2022 Albumin/Globulin [Mass ratio] 1.1 {ratio} 0.9-2.4 [facility] Work Phone: Serum or plasma calcium subhash urement (mass/volume)on 07-25-2022 Calcium [Mass/Vol] 9.0 mg/dL 8.5-10.1 [facility] Work Phone: Serum or plasma cholesterol in HDL measurement (mass/volume)on 07-25-2022 Cholesterol in HDL [Mass/Vol] 43 mg/dL >40 [facility] Work Phone: Comment on above: The drugs N-Acetylcy steine and Metamizole may falsely depress this assay. Reference Range HDL <40 mg/dL Low HDL Cholesterol HDL >or= 60 mg/dL High HDL Cholesterol Serum or plasma cholesterol in VLDL measurement (mass/volume)on 07-25-2022 Cholesterol in VLDL [Mass/Vol] 59 mg/dL 5-40 [facility] Work Phone: Serum or plasma creatinine m easurement (mass/volume)on 07-25-2022 Creatinine [Mass/Vol] 0.72 mg/dL 0.55-1.02 [facility] Work Phone: Comment on above: The validity of the calculated GFR & GFRAA in patients over 70 years has not been determined. Clinical correlation is essential. Serum or plasma low density lipoprotein (LDL) cholesterol measurement (mass/volume)on 07-25-2022 Cholesterol in LDL [Mass/Vol] 86 mg/dL 0-130 [facility] Work Phone: Serum or plasma urea nitroge n measurement (mass/volume)on 07-25-2022 Urea nitrogen [Mass/Vol] 6 mg/dL 7-18 [facility] Work Phone: Thin prep Papanicolaou smear with manual screeningon 07-25-2022 Thin prep Papanicolaou smear with manual screening 18 U/L 15-37 [facility] Work Phone: Thin prep Papanicolaou smear with manual screening 5 5-15 [facility] Work Phone: Basophil percentageon 2021 Bilirubin [Mass/Vol] 0.20 mg/dL 0.20-1.00 [facility] Work Phone: Comment on above: For patients on eltr ombopag therapy, use of [place] TBIL is not recommended. Chloride [Moles/Vol] 110 mmol/L 98-107 [facility] Work Phone: Cholesterol [Mass/Vol] 282 mg/dL <200 [facility] Work Phone: Comment on above: <200 mg/dL Desirable 200-240 mg/dL Borderline >240 mg/dL High Risk Glucose [Mass/Vol] 82 mg/dL 74-106 [facility] Work Phone: Potassium [Moles/Vol] 3.8 mmol/L 3.5-5.1 [facility] Work Phone: Comment on above: Slight Hemolysis, Re sult may be falsely increased. Protein [Mass/Vol] 7.6 g/dL 6.4-8.2 [facility] Work Phone: Sodium [Moles/Vol] 140 mmol/L 136-145 [facility] Work Phone: Triglyceride [Mass/Vol] 464 mg/dL <199 [facility] Work Phone: Comment on above: The drugs N-Acetylcy steine and Metamizole may falsely depress this assay. TRIGLYCERIDE IS GREATER THAN 400 mg/dL. LDL RESULT IS INVALID AND WILL NOT BE REPORTED.Serum Triglycerides Reference Interval Normal <150 mg/dL Borderline high 150 - 199 mg/dL High 200 - 499 mg/dL Very High > or = 500 mg/dL Laboratory - Chemistry and C hemistry - challengeon 04-09-2022 ALP [Catalytic activity/Vol] 98 U/L 45-117 [facility] Work Phone: ALT [Catalytic activity/Vol] 21 U/L 13-56 [facility] Work Phone: CO2 [Moles/Vol] 23.0 mmol/L 21.0-32.0 [facility] Work Phone: Free T4 [Mass/Vol] 0.93 ng/dL 0.76-1.46 [facility] Work Phone: Globulin (S) [Mass/Vol] 4.1 g/dL 2.2-4.2 [facility] Work Phone: Urea nitrogen/Creatinine [Mass ratio] 8.5 mg/mg 10-20 [facility] Work Phone: No Panel Informationon 04-09 Estimated GFR (MDRD) Amer 107 mL/min >60 [facility] Work Phone: Comment on above: GFR Calc Estimated GFR (MDRD) Non-Af Amer 88 mL/min >60 [facility] Work Phone: Comment on above: Non- GFR Calc Free Triiodothyronine (T3) pg/dL 3.3 pg/mL 2.18-3.98 [facility] Work Phone: Thyroid Stimulating Hormone (TSH) 0.16 uIU/mL 0.358-3.74 [facility] Work Phone: Serum or plasma albumin subhash urement (mass/volume)on 04-09-2022 Albumin [Mass/Vol] 3.5 g/dL 3.2-5.0 [facility] Work Phone: Serum or plasma albumin/glob ulin mass ratioon 04-09-2022 Albumin/Globulin [Mass ratio] 0.9 {ratio} 0.9-2.4 [facility] Work Phone: Serum or plasma calcium subhash urement (mass/volume)on 04-09-2022 Calcium [Mass/Vol] 9.5 mg/dL 8.5-10.1 [facility] Work Phone: Serum or plasma cholesterol in HDL measurement (mass/volume)on 04-09-2022 Cholesterol in HDL [Mass/Vol] 34 mg/dL >40 [facility] Work Phone: Comment on above: The drugs N-Acetylcy steine and Metamizole may falsely depress this assay. Reference Range HDL <40 mg/dL Low HDL Cholesterol HDL >or= 60 mg/dL High HDL Cholesterol Serum or plasma cholesterol in VLDL measurement (mass/volume)on 04-09-2022 Cholesterol in VLDL [Mass/Vol] [facility]: Comment on above: Test not performed Serum or plasma creatinine m easurement (mass/volume)on 04-09-2022 Creatinine [Mass/Vol] 0.71 mg/dL 0.55-1.02 [facility] Work Phone: Comment on above: The validity of the calculated GFR & GFRAA in patients over 70 years has not been determined. Clinical correlation is essential. Serum or plasma low density lipoprotein (LDL) cholesterol measurement (mass/volume)on 04-09-2022 Cholesterol in LDL [Mass/Vol] TNP [facility] Work Phone: Comment on above: Test not performed Serum or plasma urea nitroge n measurement (mass/volume)on 04-09-2022 Urea nitrogen [Mass/Vol] 6 mg/dL 7-18 [facility] Work Phone: Thin prep Papanicolaou smear with manual screeningon 04-09-2022 Thin prep Papanicolaou smear with manual screening 20 U/L 15-37 [facility] Work Phone: Comment on above: Slight Hemolysis, Re sult may be falsely increased. Thin prep Papanicolaou smear with manual screening 7 5-15 [facility] Work Phone: Absolute lymphocyte counton 12-25-2021 Lymphocytes Auto (Unsp spec) [#/Vol] 2.11 10*3/uL 0.83-4.51 [facility] Work Phone: Basophil percentageon 2021 Basophils/100 WBC (Bld) 0.5 % 0-1 [facility] Work Phone: Chloride [Moles/Vol] 106 mmol/L 98-107 [facility] Work Phone: Cholesterol [Mass/Vol] 318 mg/dL <200 [facility] Work Phone: Comment on above: <200 mg/dL Desirable 200-240 mg/dL Borderline >240 mg/dL High Risk Eosinophils/100 WBC (Bld) 1.1 % 0-5 [facility] Work Phone: Glucose [Mass/Vol] 86 mg/dL 74-106 [facility] Work Phone: Neutrophils (Bld) [#/Vol] 5.4 10*3/uL 2.0-7.7 [facility] Work Phone: Neutrophils/100 WBC (Bld) 64.8 % 47-70 [facility] Work Phone: Potassium [Moles/Vol] 3.8 mmol/L 3.5-5.1 [facility] Work Phone: Sodium [Moles/Vol] 138 mmol/L 136-145 [facility] Work Phone: Triglyceride [Mass/Vol] 387 mg/dL <199 [facility] Work Phone: Comment on above: The drugs N-Acetylcy steine and Metamizole may falsely depress this assay.Serum Triglycerides Reference Interval Normal <150 mg/dL Borderline high 150 - 199 mg/dL High 200 - 499 mg/dL Very High > or = 500 mg/dL WBC (Bld) [#/Vol] 8.3 10*3/uL 4.4-11.0 [facility] Work Phone: Blood erythrocytes count (nu mber/volume)on 12-25-2021 RBC (Bld) [#/Vol] 4.96 10*6/uL 4.2-5.4 [facility] Work Phone: Blood hemoglobin measurement (mass/volume)on 12-25-2021 Hemoglobin (Bld) [Mass/Vol] 13.3 g/dL 12.0-15.0 [facility] Work Phone: Blood lymphocytes/100 leukoc yteson 12-25-2021 Lymphocytes/100 WBC (Bld) 25.3 % 19-41 [facility] Work Phone: Blood monocytes/100 leukocyt eson 12-25-2021 Monocytes/100 WBC (Bld) 7.8 % 0-10 [facility] Work Phone: Blood platelet mean volumeon 12-25-2021 Platelet mean volume (Bld) [Entitic vol] 9.8 fL 6.2-12.0 [facility] Work Phone: Determination of erythrocyte mean corpuscular volume (MCV)on 12-25-2021 MCV (RBC) [Entitic vol] 86.9 fL 81-99 [facility] Work Phone: Hematocrit Auto (Bld) [Volum e fraction]on 12-25-2021 Hematocrit (Bld) [Volume fraction] 43.1 % 37-47 [facility] Work Phone: Laboratory - Chemistry and C hemistry - challengeon 12-25-2021 CO2 [Moles/Vol] 24.0 mmol/L 21.0-32.0 [facility] Work Phone: Free T4 [Mass/Vol] 1.02 ng/dL 0.76-1.46 [facility] Work Phone: Urea nitrogen/Creatinine [Mass ratio] 12.8 mg/mg 10-20 [facility] Work Phone: Laboratory - Hematology and Cell countson 12-25-2021 Erythrocyte distribution width (RBC) [Entitic vol] 46.1 fL 35.1-43.9 [facility] Work Phone: Erythrocyte distribution width (RBC) [Ratio] 14.4 % 11.6-14.6 [facility] Work Phone: Immature granulocytes/100 WBC (Bld) 0.500 % 0.0-0.9 [facility] Work Phone: Comment on above: IG% - Immature Granu locytes (promyelocytes, myelocytes and metamyelocytes) > 1% indicates that a LEFT SHIFT is Present. MCH (RBC) [Entitic mass] 26.8 pg 27.0-32.0 [facility] Work Phone: Nucleated RBC/100 WBC (Bld) [Ratio] 0 % 0-5 [facility] Work Phone: MCHC Auto (RBC) [Mass/Vol]on 12-25-2021 MCHC (RBC) [Mass/Vol] 30.9 g/dL 32-36 [facility] Work Phone: No Panel Informationon 12-25 Estimated GFR (MDRD) Amer 108 mL/min >60 [facility] Work Phone: Comment on above: GFR Calc Estimated GFR (MDRD) Non-Af Amer 90 mL/min >60 [facility] Work Phone: Comment on above: Non- GFR Calc Free Triiodothyronine (T3) pg/dL 2.9 pg/mL 2.18-3.98 [facility] Work Phone: Thyroid Stimulating Hormone (TSH) 1.24 uIU/mL 0.358-3.74 [facility] Work Phone: Platelets bldon 12-25-2021 Platelets (Bld) [#/Vol] 467 10*3/uL 150-450 [facility] Work Phone: Serum or plasma calcium subhash urement (mass/volume)on 12-25-2021 Calcium [Mass/Vol] 8.9 mg/dL 8.5-10.1 [facility] Work Phone: Serum or plasma cholesterol in HDL measurement (mass/volume)on 12-25-2021 Cholesterol in HDL [Mass/Vol] 38 mg/dL >40 [facility] Work Phone: Comment on above: The drugs N-Acetylcy steine and Metamizole may falsely depress this assay. Reference Range HDL <40 mg/dL Low HDL Cholesterol HDL >or= 60 mg/dL High HDL Cholesterol Serum or plasma cholesterol in VLDL measurement (mass/volume)on 12-25-2021 Cholesterol in VLDL [Mass/Vol] 77 mg/dL 5-40 [facility] Work Phone: Serum or plasma creatinine m easurement (mass/volume)on 12-25-2021 Creatinine [Mass/Vol] 0.70 mg/dL 0.55-1.02 [facility] Work Phone: Comment on above: The validity of the calculated GFR & GFRAA in patients over 70 years has not been determined. Clinical correlation is essential. Serum or plasma low density lipoprotein (LDL) cholesterol measurement (mass/volume)on 12-25-2021 Cholesterol in LDL [Mass/Vol] 203 mg/dL 0-130 [facility] Work Phone: Serum or plasma urea nitroge n measurement (mass/volume)on 12-25-2021 Urea nitrogen [Mass/Vol] 9 mg/dL 7-18 [facility] Work Phone: Thin prep Papanicolaou smear with manual screeningon 12-25-2021 Thin prep Papanicolaou smear with manual screening 8 5-15 [facility] Work Phone: CNPNon 11-01-2021 CNPN Telephone (GENSWS) PATY INGRAM ([id number]) 1960 F Date Time Provider Department 11/01/21 JW BRANCH During your visit today, we recorded the following information about you: Dayan Cantu 11/01/2021 3:56 PM Signed Patient called stating a referral from [facility] was sent to Dr. Branch a month ago for Hiatal Hernia. She is asking to speak to clinical about order. Please call patient. Ami Hudson 11/04/2021 8:21 AM Signed Left Message for patient to return call and schedule appointment Carol Meléndez RN 11/05/2021 1:54 PM Signed Left voicemail for [facility], Medical Records Department ). Asking them to please fax a referral and medical records to our office. Per the patient, the records were to be faxed to us, but we do not have anything here. ARIADNA Nunez LPN 11/11/2021 1:24 PM Signed Multiple message have been made to patient to call office back, to schedule an appointment regarding patient phone call form 11/01/21 Allergies As of Date: 11/01/2021 (Not on File) Date Reviewed: Never Reviewed Reason for Visit: Patient Question [1497] Problem List As Of Date: 11/01/2021 (None) Encounter Status:Closed by DAYAN YU on 11/03/21 Normal [facility] Absolute lymphocyte counton 09-26-2021 Lymphocytes Auto (Unsp spec) [#/Vol] 1.46 10*3/uL 0.83-4.51 [facility] Work Phone: Basophil percentageon 2020 Eosinophils/100 WBC (Bld) 0.8 % 0-5 [facility] Work Phone: Neutrophils (Bld) [#/Vol] 5.1 10*3/uL 2.0-7.7 [facility] Work Phone: WBC (Bld) [#/Vol] 7.2 10*3/uL 4.4-11.0 [facility] Work Phone: Blood erythrocytes count (nu mber/volume)on 09-26-2021 RBC (Bld) [#/Vol] 4.95 10*6/uL 4.2-5.4 [facility]: Blood hemoglobin measurement (mass/volume)on 09-26-2021 Hemoglobin (Bld) [Mass/Vol] 12.8 g/dL 12.0-15.0 [facility] Work Phone: Blood lymphocytes/100 leukoc yteson 09-26-2021 Lymphocytes/100 WBC (Bld) 20.3 % 19-41 [facility] Work Phone: Blood monocytes/100 leukocyt eson 09-26-2021 Monocytes/100 WBC (Bld) 7.1 % 0-10 [facility] Work Phone: Blood platelet mean volumeon 09-26-2021 Platelet mean volume (Bld) [Entitic vol] 9.5 fL 6.2-12.0 [facility] Work Phone: Determination of erythrocyte mean corpuscular volume (MCV)on 09-26-2021 MCV (RBC) [Entitic vol] 85.3 fL 81-99 [facility] Work Phone: [phone] Hematocrit Auto (Bld) [Volum e fraction]on 09-26-2021 Hematocrit (Bld) [Volume fraction] 42.2 % 37-47 [facility] Work Phone: Laboratory - Chemistry and C hemistry - challengeon 09-26-2021 Free T4 [Mass/Vol] 1.04 ng/dL 0.76-1.46 [facility] Work Phone: Laboratory - Hematology and Cell countson 09-26-2021 Basophils/100 WBC (Unsp spec) 0.4 % 0-1 [facility] Work Phone: Erythrocyte distribution width (RBC) [Entitic vol] 47.4 fL 35.1-43.9 [facility] Work Phone: Erythrocyte distribution width (RBC) [Ratio] 15.2 % 11.6-14.6 [facility] Work Phone: Immature granulocytes/100 WBC (Bld) 0.300 % 0.0-0.9 [facility] Work Phone: Comment on above: IG% - Immature Granu locytes (promyelocytes, myelocytes and metamyelocytes) > 1% indicates that a LEFT SHIFT is Present. MCH (RBC) [Entitic mass] 25.9 pg 27.0-32.0 [facility] Work Phone: Neutrophils/100 WBC (Bld) 71.1 % 47-70 [facility] Work Phone: Nucleated RBC/100 WBC (Bld) [Ratio] 0 % 0-5 [facility] Work Phone: MCHC Auto (RBC) [Mass/Vol]on 09-26-2021 MCHC (RBC) [Mass/Vol] 30.3 g/dL 32-36 [facility] Work Phone: No Panel Informationon 09-26 Free Triiodothyronine (T3) pg/dL 3.0 pg/mL 2.18-3.98 [facility] Work Phone: Thyroid Stimulating Hormone (TSH) 0.21 uIU/mL 0.358-3.74 [facility] Work Phone: Platelets bldon 09-26-2021 Platelets (Bld) [#/Vol] 434 10*3/uL 150-450 [facility] Work Phone: Laboratory - Microbiology an d Antimicrobial susceptibilityon 09-06-2021 SARS-CoV-2 (COVID-19) RNA FILIBERTO+probe Ql (Unsp spec) Not detected Not Detect [facility] Work Phone: Comment on above: Normal Reference Ran ge: Not DetectedMethod:(RT-PCR) real-time reverse transcriptase PCRLuminex JESSI Instrument*The Food and Drug Administration (FDA) has issued an Emergency Use Authorization (EAU) for the JESSI SARS-CoV-2 Assay for the rapid detection of the virus that causes COVID-19. This test has been validated, but the FDAs independent review of this validation is pending.*Negative results do not preclude infection and should not be used as the sole basis for treatment or patient management. Optimum specimen types and timing for peak viral levels during infections caused by SARS-CoV-2 have not been determined. Collection of multiple specimens from the same patient may be necessary to detect the virus. The possibility of a false negative result should be considered if the patient has clinical presentation or has had recent exposure. No Panel Informationon 09-06 Respiratory Panel (PCR) [facility] Work Phone: Vital Signs Date Time Vital Sign Value Performing Clinician Faci lity 07-14-2025 14:56-0400 Body weight 81.[address] Aneudy Win MD Work Phone: [facility] 07-14-2025 14:56-0400 Diastolic blood pressure 80 mm[Hg] Dr. Aneudy Win MD Work Phone: [facility] 07-14-2025 14:56-0400 Heart rate 82 /min Dr. Aneudy Win MD Work Phone: [facility] 07-14-2025 14:56-0400 Respiratory rate 18 /min Dr. Aneudy Win MD Work Phone: [facility] 07-14-2025 14:56-0400 SaO2% (BldA) [Mass fraction] 91 % Dr. Aneudy Win MD Work Phone: [facility] 07-14-2025 14:56-0400 Systolic blood pressure 116 mm[Hg] Dr. Aneudy Win MD Work Phone: [facility] 02-24-2025 12:29-0400 Body height 154.[address] Aneudy Win MD Work Phone: [facility] 02-24-2025 12:29-0400 Body temperature 97 [degF] Dr. Aneudy Win MD Work Phone: [facility] 02-24-2025 12:29-0400 Diastolic blood pressure 78 mm[Hg] Dr. Aneudy Win MD Work Phone: [facility] 02-24-2025 12:29-0400 Heart rate 76 /min Dr. Aneudy Win MD Work Phone: [facility] 02-24-2025 12:29-0400 Respiratory rate 16 /min Dr. Aneudy Win MD Work Phone: [facility] 02-24-2025 12:29-0400 SaO2% (BldA) [Mass fraction] 95 % Dr. Aneudy Win MD Work Phone: [facility] 02-24-2025 12:29-0400 Systolic blood pressure 127 mm[Hg] Dr. Aneudy Win MD Work Phone: [facility] 02-05-2024 14:10-0400 Body height 154.94 cm [facility] 02-05-2024 14:10-0400 Body temperature 98.1 [degF] [facility] 02-05-2024 14:10-0400 Diastolic blood pressure 87 mm[Hg] [facility] 02-05-2024 14:10-0400 Heart rate 89 /min [facility] 02-05-2024 14:10-0400 Respiratory rate 16 /min [facility] 02-05-2024 14:10-0400 SaO2% (BldA) [Mass fraction] 94 % [facility] 02-05-2024 14:10-0400 Systolic blood pressure 142 mm[Hg] [facility] 08-06-2023 15:16-0500 Body height 154.[address] Aneudy Win Work Phone: [facility] 08-06-2023 15:16-0500 Body mass index (BMI) [Ratio] 29.8 kg/m2 Dr. Aneudy Win Work Phone: [facility] 08-06-2023 15:16-0500 Body temperature 97.5 [degF] Dr. Aneudy Win Work Phone: [facility] 08-06-2023 15:16-0500 Body weight 71.[address] Aneudy Win Work Phone: [facility] 08-06-2023 15:16-0500 Diastolic blood pressure 89 mm[Hg] Dr. Aneudy Win Work Phone: [facility] 08-06-2023 15:16-0500 Heart rate 91 /min Dr. Aneudy Win Work Phone: [facility] 08-06-2023 15:16-0500 Respiratory rate 16 /min Dr. Aneudy Win Work Phone: [facility] 08-06-2023 15:16-0500 SaO2% (BldA) [Mass fraction] 92 % Dr. Aneudy Win Work Phone: [facility] 08-06-2023 15:16-0500 Systolic blood pressure 131 mm[Hg] Dr. Aneudy Win Work Phone: [facility] 03-20-2023 13:45-0400 Diastolic blood pressure 77 mm[Hg] Dr. Aneudy Win Work Phone: [facility] 03-20-2023 13:45-0400 Heart rate 72 /min Dr. Aneudy Win Work Phone: [facility] 03-20-2023 13:45-0400 Respiratory rate 16 /min Dr. Aneudy Win Work Phone: [facility] 03-20-2023 13:45-0400 SaO2% (BldA) [Mass fraction] 93 % Dr. Aneudy Win Work Phone: [facility] 03-20-2023 13:45-0400 Systolic blood pressure 128 mm[Hg] Dr. Aneudy Win Work Phone: [facility] 03-20-2023 12:16-0400 Body temperature 98.1 [degF] Dr. Aneudy Win Work Phone: [facility] 03-20-2023 06:29-0400 Body height 154.[address] Aneudy Win Work Phone: [facility] 03-20-2023 06:29-0400 Body mass index (BMI) [Ratio] 30.4 kg/m2 Dr. Aneudy Win Work Phone: [facility] 03-20-2023 06:29-0400 Body weight 73.[address] Aneudy Win Work Phone: [facility] 03-05-2023 15:01-0400 Body mass index (BMI) [Ratio] 30 kg/m2 Dr. Aneudy Win Work Phone: [facility] 03-05-2023 15:01-0400 Body temperature 97.9 [degF] Dr. Aneudy Win Work Phone: [facility] 03-05-2023 15:01-0400 Body weight 72.[address] Aneudy Win Work Phone: [facility] 03-05-2023 15:01-0400 Diastolic blood pressure 84 mm[Hg] Dr. Aneudy Win Work Phone: [facility] 03-05-2023 15:01-0400 Heart rate 90 /min Dr. Aneudy Win Work Phone: [facility] 03-05-2023 15:01-0400 Respiratory rate 17 /min Dr. Aneudy Win Work Phone: [facility] 03-05-2023 15:01-0400 SaO2% (BldA) [Mass fraction] 95 % Dr. Aneudy Win Work Phone: [facility] 03-05-2023 15:01-0400 Systolic blood pressure 127 mm[Hg] Dr. Aneudy Win Work Phone: [facility] Encounters Encounter Date Encounter Type Care Provider Facility Start: 07-14-2025 End: 07-14-[address] Kj Man MD -[facility] Work Phone: Start: 07-14-2025 End: 07-14-2025 amb[place]j [place] [place]: 06-16-2025 End: 06-16-[address] Aneudy Win MD Work Phone: -Cat Scan [facility] Start: 06-16-2025 End: 06-16-[address] Aneudy Win MD -Cat Scan [facility] Work Phone: Start: 06-16-2025 End: 06-16-2025 ambulatory Aneudy Win Facility:[facility] Start: 04-28-2025 End: 04-28-[address] Aneudy Win MD Work Phone: -Ultrasound [facility] Start: 04-28-2025 End: 04-28-[address] Aneudy Win MD -Ultrasound [facility] Work Phone: Start: 04-28-2025 End: 04-28-2025 ambulatory Aneudy Win Facility:[facility] Start: 02-24-2025 End: 02-24-[address] Aneudy Win MD -Medical Out Work Phone: Start: 02-24-2025 End: 02-24-[address] Aneudy Win MD Work Phone: [facility] Work Phone: Start: 01-27-2025 End: 01-27-[address] Aneudy Win MD Work Phone: [facility] Work Phone: Start: 01-27-2025 End: 01-27-[address] Aneudy Win MD -Radiology, [place] Work Phone: Start: 01-27-2025 End: 01-27-2025 ambulatory Aneudy Win Facility:[facility] Start: 11-17-2024 End: 11-17-[address] [facility] Start: 11-17-2024 End: 11-17-2024 ambulatory Aneudy Win Facility:[facility] Start: 11-14-2024 ambulatory Aneudy Win Facility:[facility] Start: 08-12-2024 End: 08-12-2024 ambulatory Aneudy Win Facility:[facility] Start: 02-05-2024 End: 02-05-2024 ambulatory [facility] Work Phone: Start: 02-05-2024 End: 02-05-2024 Patient encounter procedure [facility] Work Phone: Start: 12-17-2023 End: 12-17-2023 ambulatory [facility] Work Phone: Start: 12-17-2023 End: 12-17-2023 Patient encounter procedure [facility] Start: 09-17-2023 End: 09-17-2023 ambulatory [facility] Work Phone: Start: 09-17-2023 End: 09-17-2023 Patient encounter procedure [facility] Start: 08-06-2023 End: 08-06-[address] Aneudy Win Work Phone: [facility] Work Phone: Start: 08-06-2023 End: 08-06-[address] [facility] Start: 06-18-2023 End: 06-18-[address] Aneudy Win Work Phone[facility] Start: 04-29-2023 End: 04-29-[address] Aneudy Win Work Phone: [facility] [facility] Work Phone: Start: 04-09-2023 End: 04-09-[address] Aneduy Win Work Phone: [facility] Work Phone: Start: 03-20-2023 Non-patient / Non-visit Dr. Lc Win Work Phone: [facility] Start: 03-20-2023 End: 03-20-2023 Admission to same day surgery center Dr. Aneudy Win Work Phone: [facility] Start: 03-20-2023 End: 03-20-[address] Aneudy Win Work Phone: [facility] Work Phone: Start: 03-05-2023 End: 03-05-[address] Aneudy Win Work Phone: [facility] Start: 02-24-2023 End: 02-24-[address] Aneudy Win Work Phone: [facility] Work Phone: Start: 02-24-2023 End: 02-24-[address] Aneudy Win Work Phone: [facility]-Nuclear Medicine, [facility] Start: 01-22-2023 End: 01-22-2023 ambulatory [facility] Work Phone: Start: 01-22-2023 End: 01-22-2023 Patient encounter procedure [facility]-Outpatient Bone Densitometry Start: 12-18-2022 End: 12-18-2022 ambulatory [facility] Work Phone: Start: 12-18-2022 End: 12-18-2022 Patient encounter procedure [facility] Start: 07-25-2022 End: 07-25-2022 ambulatory [facility] Work Phone: Start: 07-25-2022 End: 07-25-2022 Patient encounter procedure [facility] Start: 04-09-2022 End: 04-09-2022 Patient encounter procedure [facility] Start: 12-25-2021 End: 12-25-2021 Patient encounter procedure [facility] Start: 11-01-2021 Telephone encounter Jw lazaro MD Work Phone: [facility] Comment on above: Opened In Error Start: 09-26-2021 Patient encounter procedure [facility] Start: 09-06-2021 Patient encounter procedure [facility] Start: 01-15-2021 End: 01-15-2021 Telephone encounter Noel Puente Work Phone: [facility] Comment on above: Appointment Procedures Date Procedure Procedure Detail Performing Clinician Start: 06-16-2025 CT of lower limb with contrast Dr. Aneudy Win MD Work Phone: Start: 04-28-[address] Aneudy Win MD Work Phone: Start: 01-27-2025 X-ray of lumbosacral spine Dr. Aneudy Win MD Work Phone: Start: 06-18-2023 Plain x-ray of pelvis and lower extremity Dr. Aneudy Win Work Phone: Start: 03-20-[address] Aneudy Win Work Phone: Start: 03-20-[address] Aneudy Win Work Phone: Start: 03-20-2023 Total cholecystectomy and exploration of common bile duct Dr. Aneudy Win Work Phone: Start: 02-24-2023 Radionuclide imaging of liver and/or biliary tract using radioactive isotope Dr. Aneudy Win Work Phone: Start: 01-22-2023 Dual energy X-ray absorptiometry Start: 01-22-2023 Ultrasonography of abdomen Start: 09-06-2021 Respiratory Panel (PCR) History of cholecystectomy S/P laparoscopic cholecystectomy Dr. Aneudy Win Work Phone: Plan of Treatment Date Care Activity Detail Author Start: 03-20-2023 Patient discharge [facility] Start: 03-20-2023 Anes intraperitoneal upper abdomen w/laps nos ANESTH SURG UPPER ABDOMEN [facility] Start: 03-20-2023 Laps surg cholecystectomy w/cholangiography LAPARO CHOLECYSTECTOMY/GRAPH [facility] Start: 03-20-2023 Cholangiogram Cholangiogram/ O R,Initial [facility] Start: 03-20-2023 XR Biliary ducts and Gallbladder Views W contrast IV [facility] Start: 05-29-2021 Influenza vaccination INFLUENZA (#1) [facility] Start: 2009 SHINGRIX VACCINE (1 of 2) SHINGRIX VACCINE (1 of 2) [facility] Start: 2004 COLOGUARD (FIT-DNA) COLOGUARD (FIT-DNA) [facility] Start: 2004 Colonoscopy COLONOSCOPY [facility] Start: 2004 COLORECTAL CANCER SCREENING COLORECTAL CANCER SCREENING [facility] Start: [address] COLONOGRAPHY [facility] Start: 2004 DIABETES SCREEN DIABETES SCREEN [facility] Start: 2004 FECAL OCCULT BLOOD FECAL OCCULT BLOOD [facility] Start: 2004 LIPID SCREEN LIPID SCREEN [facility] Start: 2004 SIGMOIDOSCOPY SIGMOIDOSCOPY [facility] Start: 1999 Mammography MAMMOGRAM [facility] Start: 1989 HPV TESTING HPV TESTING [facility] Start: 1980 PAP TESTING PAP TESTING [facility] Start: 1978 Urine microalbumin profile DTAP,TDAP,TD (1 - Tdap) [facility] Start: 1977 HEPATITIS C SCREENING HEPATITIS C SCREENING [facility] Start: 1977 HIV SCREENING HIV SCREENING [facility] Start: 1971 Adult depression screening assessment DEPRESSION SCREENING [facility] Start: 1964 COVID-19 VACCINE (1) COVID-19 VACCINE (1) [facility] Patient referral [facility] Work Phone: Payers Date Payer Category Payer Self-pay [id number] 2020 Medicaid [id number] 2020 Unknown [id number] 2020 Medicaid [id number] Medicare [id number] Unknown [id number] 2.16.8 [id number] Unknown [id number] 2.16.8 [id number] Unknown [id number] 2.16.8 [id number] Unknown [id number] 2.16.8 [id number] Unknown [id number] 2.16.8 [id number] Unknown [id number] 2.16.8 [id number] Unknown [id number] 2.16.8 [id number] Unknown [id number] 2.16.8 [id number] Social History Date Type Detail Facility Tobacco smoking status RIIS Unknown if ever smoked [facility] Start: 1960 Sex Assigned At Not on file [facility] Start: 03-13-2023 End: 03-13-2023 Tobacco smoking status RIIS Tobacco smoking consumption unknown [facility] Work Phone: Start: 1960 Sex Assigned At Female [facility] Start: 03-13-2023 Tobacco smoking status NHIS Smokes tobacco daily (finding) [facility] Sex Female [facility] NEGATED: Highlighted row [facility] Medical Equipment Procedure Code Equipment Code Equipment Original Text Equipment Identifier Dates Total cholecystectomy with exploration of common bile duct Ligation clip, synthetic polymer, non-bioabsorbable [id number] FDA Start: 03-20-2023 Goals Date Patient Goal Desired Activity /State Mental Status Date Assessment Result Facility 02-24-2025 Cognitive function Awake;Alert;A ppropriate;Fol lows Commands [facility] Work Phone: 02-05-2024 Cognitive function Awake;Alert;A ppropriate;Fol lows Commands [facility] Work Phone: 08-06-2023 Cognitive function Voice/Name [facility] Work Phone: 03-20-2023 Cognitive function Voice/Name;Touch/Shaki ng [facility] Work Phone: Clinical Notes 01-15-2021 to 07-14-2025 Note Date & Type Note Facility 07-14-2025 Progress note [facility] 07-14-2025 Progress note Note Date/Time July 14, 2025 3:11pm [facility] [address], [address] [place] [address] OFFICE VISIT Date of Service: 07/14/25 MR#: [id number] Acct: [id number] Name: VERONIKAJeyPATY PHILLIPS Rep #: [id number] : 1960 Provider: Dr. Jonathan Man MD Age/Sex: 65/F Location[place] [facility] Status: Signed Intake Vital Signs 3 02/24/25 12:29 07/14/25 14:56 Height 5 ft 1 in Weight: 179 lb BP 116/80 Blood Pressure Location Rt brachial Position Sitting Respiration 18 Pulse 82 Pulse Source Monitor Pulse Oximetry (%) 91 Oxygen Delivery Method room air Intake Visit Reasons: LUMP ON LEG Chief Complaint: Lump on leg Is patient in pain?: No Allergies morphine Allergy (Verified 07/14/25 14:37) Itching Sulfa (Sulfonamide Antibiotics) Allergy (Verified 07/14/25 14:37) Hives meperidine (From Demerol) Adverse Reaction (Verified 07/14/25 14:37) Other Medications 3 ?Medication ?Instructions ?Recorded ?Confirmed ?Type calcium carbonate (Calcium 600) 600 mg PO DAILY 07/14/25 History cholecalciferol (vitamin D3) 50 50 mcg PO DAILY 07/14/25 History mcg (2,000 unit) capsule escitalopram oxalate 10 mg tablet 20 mg PO DAILY 03/0507/14/25 History (Lexapro) lamotrigine 100 mg tablet 100 mg PO BID 03/05/2307/14 History levothyroxine 75 mcg capsule 75 mcg PO DAILY 03/05/23 07/14/25 History lorazepam 0.5 mg tablet (Ativan) 0.5 mg PO DAILY PRN A nxiety 03/05/23 07/14/25 History methocarbamol 500 mg tablet 500 mg PO 4X/DAY 03/05/23 07/14/25 History potassium gluconate 600 mg (99 mg) 600 mg PO DAILY 05/2007/14/25 History tablet liothyronine 5 mcg tablet 5 mcg PO DAILY 03/13/2306/28 History rosuvastatin 10 mg tablet (Crestor) 10 mg PO DAILY 07/14/25 History meloxicam 15 mg tablet 15 mg PO PRN PRN pain 07/14/25 History brexpiprazole 0.5 mg tablet 0.5 mg PO DAILY 08/12/24 1 History (Rexulti) gabapentin 300 mg capsule 600 mg PO Q8H 08/12/2407/14 History omeprazole 40 mg capsule,delayed 40 mg PO DAILY 07/14/25 History release Have you fallen in the past year?: No PFSH Medical History Wears glasses Wears dentures Post-menopausal High cholesterol PTSD (post-traumatic stress disorder) Bipolar disorder Depression Anxiety Thyroid disease Arthritis Anemia Neuropathy Fibromyalgia Back pain Injury of back Migraine headache History of hiatal hernia Gastric reflux Smoker History of pain when walking History of edema History of stress test Surgical History S/P laparoscopic cholecystectomy Hx of tubal ligation Hx of colonoscopy History of cystoscopy H/O hernia repair H/O thyroidectomy History of hysterectomy Family History Mother Heart disease Hypertension Cancer skin Father Hypertension Social History Smoking Status: Current every day smoker tobacco type: cigarettes alcohol intake: never substance use type: does not use HPI LUMP ON LEG Details: Patient is delightful 65-year-old female with approximately 6-month history of an area of swelling on the medial legs bilaterally, worse on the right. Her PCPwas concerned for a DVT so he got an ultrasound which did not demonstrate any DVT. He also ordered a CT scan which did not demonstrate any abnormalities in the location of the palpable masses. She reports that these areas are tender topalpation. She reports 35 pounds weight gain recently ROS General General: Yes good health and fatigue; No fever(s) or weight loss HENMT HENMT: No rhinitis, sore throat/mouth sore, nasal congestion, contacts or glaucoma Endo Endocrine: Yes thyroid disease, heat intolerance and cold intolerance; No polydipsia, hepatitis or excessive urine Skin Skin: No Bleeding, bruising, changing moles or suspicious lesion Musc Musculoskeletal: Yes joint pain, joint stiffness, muscle weakness, back pain andosteoarthritis; No Muscle aches/ myalgia Neuro Neurological: No headache(s), Yes lightheadedness and No numbness Cardio Cardiovascular: Yes fatigue; No chest pain, pacemaker or shortness of breat with exertion Psych Psychiatric: Yes depression and claustrophobia; No anxiety Resp Respiratory: No spitting up, shortness of breath, sleep apnea, asthma, emphysema, TB, Cough or Smoker Gastro Gastrointestinal: Yes diarrhea and constipation; No blood in stool, nausea, vomiting or abdominal bloating Gerry Hematologic: No anemia, No bleeding and No abnormal bleeding Genitourinary: Yes incontinence; No urinary frequency or blood in urine Exam Details Negative Stemmer sign bilaterally She has palpable fat on the medial proximal legs in the distribution of lipedema. This area is painful to palpation. Supplemental Info I reviewed the CT scan and just saw fat in the area of concern This is consistent with the radiologist read Coding Level of Care Code Off vis,new,level 3 Diagnoses Lipedema of lower extremity R60.0 Assessment and Plan (No Qualifiers) Assessment and Plan (1) Lipedema of lower extremity: Status: Acute Comment: Bilateral, worse on the right Plan: I talked to the patient about lipedema, which often consists of painful fat in certain areas (certain distributions). Hers is consistent with this disease. I had offered her an MRI to better characterize the area, but she declined and Ithink this is reasonable as there is low level suspicion for any masses given that the CT scan did not demonstrate any. I offered her consideration for liposuction of the area to improve the painful fat (no guarantees but this can help in some patients). She is going to consider this option and call us. Clinical Quality Measures Falls Risk Screening/Assistive Devices Have you fallen in the past year?: No 07/14/25 1121 <Electronically signed by Kj Man MD> Date _ Kj Man MD Cosigner Signature: Date (if applicable) CC: ~ [facility] Work Phone: 1(836) 117-129409-22-2025 Radiology Diagnostic study note [facility] [address] [place], [place] [id number] Extremity Lower WITH Contrast MR#: [id number] Acct: [id number] Name: PATY INGRAM ALAN Rep #: [id number] : 1960 F 65 From: Betito Madera MD PCP: Dr. Aneudy Win MD Status: REG Pola TIRADO Study:Extremity Lower WITH Contrast Date of E xam: 06/16/25 Exam# [id number] Ordering Dr: Aneudy Win MD PROCEDURE: EXTREMITY LOWER WITH CONTRAST 06/16/2025 REASON FOR EXAM: LOCALIZED SWELLING, MASS AND LUMP, UNSPECIFIED LOWER LIMB TECHNIQUE: Procedure Code: CTELW Modality: CT Procedure: EXTREMITY LOWER WITH CONTRAST Coronal and Sagittal reconstruction series were provided. CONTRAST: None One or more dose reduction techniques were used (e.g., Automated exposure control, adjustment of the mA and/or kV according to patient size, use of iterative reconstruction technique). RADIATION DOSE SUMMARY: DLP: 883 mGycm COMPARISON: None FINDINGS: A soft tissue marker is noted in the medial anterior soft tissues, proximal 1/3,with no visible underlying mass or cyst. There is no fracture or dislocation identified. There is mild medial joint space narrowing at the knee. There is no suspicious lytic or blastic lesion. There is no adenopathy. There is no significant atherosclerosis. CT/Extremity Lower WITH Contrast IMPRESSION: A soft tissue marker is noted in the medial anterior soft tissues, proximal 1/3,with no visible underlying mass or cyst. Consider MRI with and without contrast for further evaluation if there is clinical suspicion of a soft tissue mass. Reading Location: [facility] CC: Dr. Aneudy Win MD ~ Oil Analyst: Signed [facility]08-03-2025 Radiology Diagnostic study note [facility] [address] [place], [place] [id number] Ext Non Vasc Limited/Soft Tiss MR#: [id number] Acct: [id number] Name: PATY INGRAM ALAN Rep #: [id number] : 1960 F 65 From: Pet er Peer DO PCP: Dr. Aneudy Win MD Status: REG C CANDIDA Study:Ext Non Vasc Limited/Soft Tiss Date of Exam: 04/28/25 Exam# [id number] Ordering Dr: Aneudy Win MD PROCEDURE: EXT NON VASC LIMITED/SOFT TISSUE 04/28/2025 REASON FOR EXAM: LOCALIZED SWELLING, MASS AND LUMP, UNSPECIFIED LOWER LIMB TECHNIQUE: EXT NON VASC LIMITED/SOFT TISSUE COMPARISON: None. FINDINGS: The area of the concern is scanned and no objects are found which are not normaltissue. US/Ext Non Vasc Limited/Soft Tiss IMPRESSION: No abnormality seen at the area of concern in the right leg.. Reading Location[facility] CC: Dr. Aneudy Win MD ~ Oil Analyst: Signed [facility]05-03-2025 Radiology Diagnostic study note [facility] [address] [place], [place] [address] L/S Spine Min 4 Views MR#: [id number] Acct: [id number] Name: PATY INGRAM Rep #: [id number] : 1960 F 64 From: Marshall Marie MD PCP: Dr. Aneudy Win MD Status: REG C LI Study:L/S Spine Min 4 Views Date of Exam: 01/27/25 Exam# [id number] Ordering Dr: Aneudy Win MD PROCEDURE: L/S SPINE MIN 4 VIEWS 01/27/2025 REASON FOR EXAM: BACK PAIN TECHNIQUE: Four views; AP, lateral and bilateral oblique COMPARISON: None available FINDINGS: Large hiatal hernia. For nomenclature purposes there is a partially lumbarized S1 segment. No fracture or malalignment. Mild leftward curvature. There appears to be possible osteopenia. No definite spondylolysis identified. L3-4 mild disc space narrowing L4-5 mild disc space narrowing Abdominal aortic atherosclerotic calcification. Ovoid calcific density to the right of the lumbar spine around the L4-5 level unclear if this is bowel contents or possibility of a kidney stone or other intra-abdominal calcification such as a calcified lymph node or other lesion. RAD/L/S Spine Min 4 Views IMPRESSION: Large hiatal hernia. Spondylosis/discogenic change as above. Ovoid calcific density to the right of the lumbar spine around the L4-5 level unclear if this is bowel contents or possibility of a kidney stone or other intra-abdominal calcification such as a calcified lymph node or other lesion. Reading Location: [id number] CC: Dr. Aneudy Win MD ~ Oil Analyst: Signed [facility]06-23-2023 Procedure [facility] 03-20-2023 History and physical note Author Dr. Munoz [facility] March 20, 2023 6:58am Note Date/Time March 20, 2023 6:57 am [facility] Medical Records Department [address] [place] [address] History & Physical Exam 03/20/23 0657 MR#: [id number] Acct: [id number] Name: PATY INGRAM Rep #:[id number] : 1960 62 From: Melissa Munoz MD PCP: Dr. Aneudy Win MD Status:REG S MS Location: [place] [address] History and Physical Date of Admission: 03/20/23 Date of Service:? 03/05/23 MR#: [id number] Acct: [id number] Name:? PATY INGRAM Rep #: [id number] : 1960 ? ? Provider: Dr. Melissa Munoz MD Age/Sex:? 62/F ? ? [place] [facility] Status: Signed with Addenda ADDENDUM by Dr. Melissa Munoz MD on 03/18/23 at 0917 Intake Chief Complaint: gallbladder Allergies morphine Allergy (Verified 03/13/23 09:51) ItchingSulfa (Sulfonamide Antibiotics) Allergy (Verified 03/13/23 09:51) Hivesmeperidine [From Demerol] Adverse Reaction (Verified 03/13/23 09:51) Other Medications calcium carbonate 600 mg calcium (1,500 mg) tablet (Calcium) 600 mg PO DAILY 03/05/23 [History Confirmed 03/13/23] cholecalciferol (vitamin D3) 50 mcg (2,000 unit) capsule 50 mcg PO DAILY 03/05/23 [History Confirmed 03/13/23] escitalopram oxalate 10 mg tablet (Lexapro) 10 mg PO DAILY 03/05/23 [History Confirmed 03/13/23] gabapentin 800 mg tablet 800 mg PO 4X/DAY 03/05/23 [History Confirmed 03/13/23] lamotrigine 100 mg tablet 100 mg PO BID 03/05/23 [History Confirmed 03/13/23] levothyroxine 75 mcg capsule 75 mcg PO DAILY 03/05/23 [History Confirmed 03/13/23] lorazepam 0.5 mg tablet (Ativan) 0.5 mg PO DAILY PRN Anxiety 03/05/23 [History Confirmed 03/13/23] methocarbamol 500 mg tablet 500 mg PO 4X/DAY 03/05/23 [History Confirmed 03/13/23] pantoprazole 40 mg tablet,delayed release 40 mg PO DAILY #30 tabs 03/05/23 [Rx Confirmed 03/13/23] potassium gluconate 600 mg (99 mg) tablet 600 mg PO DAILY 03/05/23 [History Confirmed 03/13/23] liothyronine 5 mcg tablet 5 mcg PO DAILY 03/13/23 [History Confirmed 03/13/23] rosuvastatin 10 mg tablet (Crestor) 10 mg PO DAILY 03/13/23 [History Confirmed 03/13/23] Assessment and Plan Assessment and Plan (1) Biliary dyskinesia: ?Status:?Acute ?Comment: HIDA scan ejection fraction 60% (2) Acid reflux: ?Status:?Acute 03/18/23916 <Electronically signed by Melissa Munoz MD> Date Melissa Munoz MD cc: ? ~* Signed Intake Vital Signs ? 04/24/2114:36 03/05/2315:01 Height 5 ft 1 in 5 ft 1 in Weight: ? 159 lb BMI ? 30.0 BP ? 127/84 H Blood Pressure Location ? Rt brachial Position ? Sitting Respiration ? 17 Pulse ? 90 Pulse Source ? Monitor Temp ? 97.9 F Temp Source ? Temporal Pulse Oximetry (%) ? 95 Oxygen Delivery Method ? room air Intake Visit Reasons:?GALLBLADDER DISEASE Chief Complaint: gallbladder Is patient in pain?: Yes Allergies morphine Allergy (Verified 03/05/23 15:02) ItchingSulfa (Sulfonamide Antibiotics) Allergy (Verified 03/05/23 15:02) Hivesmeperidine [From Demerol] Adverse Reaction (Verified 03/05/23 15:02) Other Medications calcium carbonate 600 mg calcium (1,500 mg) tablet (Calcium) 600 mg PO DAILY 03/05/23 [History Confirmed 03/05/23] cholecalciferol (vitamin D3) 50 mcg (2,000 unit) capsule 50 mcg PO DAILY 03/05/23 [History Confirmed 03/05/23] escitalopram oxalate 10 mg tablet (Lexapro) 10 mg PO DAILY 03/05/23 [History Confirmed 03/05/23] gabapentin 800 mg tablet 800 mg PO 4X/DAY 03/05/23 [History Confirmed 03/05/23] lamotrigine 100 mg tablet 100 mg PO BID 03/05/23 [History Confirmed 03/05/23] levothyroxine 75 mcg capsule 75 mcg PO DAILY 03/05/23 [History Confirmed 03/05/23] lorazepam 0.5 mg tablet (Ativan) 0.5 mg PO DAILY PRN 03/05/23 [History Confirmed 03/05/23] methocarbamol 500 mg tablet 500 mg PO TID 03/05/23 [History Confirmed 03/05/23] pantoprazole 40 mg tablet,delayed release 40 mg PO DAILY #30 tabs 03/05/23 [Rx Confirmed 03/05/23] potassium gluconate 600 mg (99 mg) tablet 600 mg PO DAILY 03/05/23 [History Confirmed 03/05/23] PFSH Surgical History?(Updated 03/05/23 @ 15:00 by Lucinda Pereira) H/O hernia repair H/O thyroidectomy History of hysterectomy Family History?(Updated 03/05/23 @ 15:00 by Lucinda Pereira) Mother Heart disease Hypertension Cancer ?? ? skinFather Hypertension Social History?(Updated 03/05/23 @ 15:01 by Lucinda Pereira) Smoking Status:? Current every day smoker alcohol intake:? never substance use type:? does not use HPI HPI HPI: 62-year-old female presents due to biliary dyskinesia.? Patient states she has bloating 24/7.? Does have fullness easily and some nausea which then can have right upper quadrant back pain.? Patient states with these episodes she does have yellow stools that burning.? Patient states she can have these episodes over 4 to 5 days.? Patient does try to avoid fatty and greasy foods.? Patient has a history of hiatal hernia repair in 2005 but has been on Prilosec since thenmain symptoms of reflux were burning of the esophagus and mouth sores and occasional epigastric pain.? Patient's last EGD was [address] [facility] where patient moved from.? Patient also had a colonoscopy at that time.?Patient does have some new memory issues per patient.? Patient also states with anesthesia she has had issues where she is awake but still paralyzed. ROS General General: Yes weight change and fatigue; No appetite, colon cancer or breast cancer HEENT HEENT: No difficulty swallowing, eye injury, eye surgery, swollen glands or hoarseness Endo Endocrine: Yes thyroid disease; No diabetes mellitus, thyroid cancer, Hair loss, heat intolerance or cold intolerance Skin Skin: No rash or changing moles Musc Musculoskeletal: Yes back problems and arthritis; No rheumatoid arthritis, gout or joint pain Cardio Cardiovascular: No murmur, pacemaker, heart disease, atrial fibrillation, high blood pressure, heart attack, heart stent, palpitations, shortness of breat withexertion or chest pain Psych Psychiatric: Yes depression and anxiety; No hearing voices Resp Respiratory: No shortness of breath, No sleep apnea, No cough, No COPD, No asthma, No emphysema and No wheezing Gastro Gastrointestinal: Yes abdominal pain, Yes nausea or vomiting, Yes diarrhea, Yes constipation, No blood in stool, Yes acid reflux, Yes hemorrhoids, No ulcers, Yes gallbladder problem and No black,tarry stools Gerry Hematologic: No blood thinners, No blood disorders, No bleeding, No anemia and No blood clots Neuro Neurologic: Yes numbness and Yes tingling Exam Const General: cooperative, healthy appearing and no acute distress [facility] Head: normal to inspection Resp Effort & Inspection: normal respiratory effort Cardio Rate: regular rate GI Inspection: non-distended Palpation: soft, no guarding, no hernias and tender (RUQ>epigastric, LUQ) with no rebound tenderness Skin General: no rashes or lesions noted Neuro General: patient oriented x3 Extrem General: no clubbing, cyanosis or edema Psych Affect: normal affect Assessment and Plan Assessment and Plan (1) Biliary dyskinesia: ?Status:?Acute (2) Acid reflux: ?Status:?Acute ? ? ? Medications: New pantoprazole 40 mg PO DAILY 30 tabs 4RF ? ? Discontinued omeprazole magnesium (Prilosec OTC) ?? Discontinued Reason:? Discontinued by PCP/other physicians 40 mg PO DAILY ? ? Plan Discussed with patient since she is still having some symptoms in the bloating that could be due to her reflux as well we will try changing her from the Prilosec to pantoprazole 40 mg p.o. daily she has been this on this for years.? Patient was agreeable with plan. Reviewed the anatomy with the patient and discussed the procedure: laparoscopic cholecystectomy with cholangiograms, possible open. Review risks including but not limited to bleeding, infection, hernia, bile leak, retained gallstones requiring another procedure ERCP- Endoscopic Retrograde Cholangiopancreatography, injury to another organ (bile ducts, common bile duct,small bowel, etc.) and conversion to an open procedure. All questions were answered. Melissa Munoz M.D. Pager: [phone] [facility] [address] [place] [address], [address] [place] [id number] Office: [phone] Coding Level of Care Code Off vis,new,level 3 Diagnoses Biliary dyskinesia? K82.8 Acid reflux? K21.9 03/05/23 1530 <Electronically signed by Melissa Munoz MD> Date Melissa Munoz MD 03/20/23 0657 <Electronically signed by Melissa Munoz MD> Cosigner Signature (if applicable): CC: Dr. Aneudy Win MD; Dr. Melissa Munoz MD~ Signed ADDENDUM by Dr. Melissa Munoz MD on 03/20/23 at 0658 Addendum I have examined the patient the following changes are noted: Patient still complaining of bloating as well as right upper quadrant pain since her office visit. Patient states she has started be pantoprazole and has not noticed any difference with the bloating. She states she noticed the bloating after the right upper quadrant pain began previously. 03/20/23 0658<Electronically signed by Melissa Munoz MD> Cosigner Signature (if applicable): cc: Dr. Aneudy Win MD; Dr. Melissa Munoz MD ~* Signed [facility] Work Phone: [phone]) 344-808304-20-2021 Miscellaneous Notes* Telephone Encounter - Meenakshi Marshall (Machine Operator Transplanter) - 01/15/2021 10:45 AM EDT CALLED PATIENT TWICE ON 01/11/21 LEFT VM TO CALL AND GET SCHEDULED. CALLED PATIENT MULTIPLE TIMES ON 01/14/21 AND 01/15 TO GET SCHEDULED NO ANSWER. LEFT MULTIPLE VM NO RESPONSE CMAY documented in this encounterWadsworth-Rittman HospitalD[facility] summary Author Dr. Munoz [facility] March 20, 2023 2:11pm Note Date/Time March 20, 2023 2:11 pm [facility] Medical Records Department [address] [place] [address] Instructions for Home/Discharge Instructions 03/20/23 1411 MR#: [id number] Acct: [id number] Name: PATY INGRAM Rep #:[id number] : 1960 62 From: Melissa Munoz MD PCP: Dr. Aneudy Win MD Status:REG S DC Discharge Instructions Diet Discharge Diet: Light diet - advance as tolerated Activity Discharge Activity: May Not Drive (while taking narcotic pain medications.) May shower in (days): 1 Lifting Restrictions: no lifting >20 lbs x 2 wks, no strenuous exercise for 4 wks Dressing / Incision Call your doctor if your incision/area has: Continuous Slow Oozing, Sudden Increased Bleeding, Increased Pain/ Swelling, Increased Redness, Foul Smelling Discharge and Swelling at the incision site Call your doctor if you observe: Fever of 101 or Higher Remove Dressing in: 2 days Cleanse incision/area with: Soap & Water Additional Dressing/Incision Instructions:: Steri-Strips will fall off in 7 to 10 days, if they do not fall off okay to remove after 10 days. Follow Up Care Please Follow Up With: Melissa Munoz MD When: Call the office for a follow-up appointment 2 weeks; after 5 PM and on call [phone] with any concerns. Test Results: Test results from this visit will be discussed in further detail at your follow- up appointment, if applicable. Discharge Plan Admission Attending Provider: Melissa Munoz Primary Care Provider: Aneudy Win Discharge Orders/Prescriptions Prescriptions: New oxycodone-acetaminophen 5-325 mg tablet 1 - 2 tab PO Q6H PRN (Reason: pain) 3 Days Qty: 14 0RF Continued levothyroxine 75 mcg capsule 75 mcg PO DAILY methocarbamol 500 mg tablet 500 mg PO 4X/DAY gabapentin 800 mg tablet 800 mg PO 4X/DAY lamotrigine 100 mg tablet 100 mg PO BID escitalopram oxalate [Lexapro] 10 mg tablet 10 mg PO DAILY calcium carbonate [Calcium 600] 600 mg calcium (1,500 mg) tablet 600 mg PO DAILY potassium gluconate 600 mg (99 mg) tablet 600 mg PO DAILY cholecalciferol (vitamin D3) 50 mcg (2,000 unit) capsule 50 mcg PO DAILY lorazepam [Ativan] 0.5 mg tablet 0.5 mg PO DAILY PRN (Reason: Anxiety) pantoprazole 40 mg tablet,delayed release (DR/EC) 40 mg PO DAILY Qty: 30 4RF liothyronine 5 mcg Tablet 5 mcg PO DAILY rosuvastatin [Crestor] 10 mg Tablet 10 mg PO DAILY Referrals / Follow Up: Aneudy Win MD [Primary Care Provider] - Disposition Disposition (needs filled in before D/C Order can be placed): Home, Self Care 03/20/23 1411<Electronically signed by Melissa Munoz MD>Melissa Munoz MD CC: Dr. Aneudy Win MD ~ Signed [facility] Work Phone: Evaluation noteNo assessment information available [facility] Work Phone: Evaluation note* Diagnosis Onset Date Resolution Status Acid reflux acute Biliary dyskinesia acute [facility] Work Phone: Evaluation note* Diagnosis Onset Date Resolution Status S/P laparoscopic cholecystectomy acute S/P laparoscopic cholecystectomy acute Diarrhea chronic [facility] Work Phone: Evaluation note* Diagnosis Onset Date Resolution Status Admit Date Lipedema of lower extremity acute July 14, 2025 2:17pm [facility] Work Phone: Reason for referral (narrative)No reason for referral information availableMetrohealth [facility] Center Work Phone: Summary Purpose Family History Relationship Condition Age at Onset Recorded Date/T marquis mother Cardiac disease Unknown Hypertension Unknown Malignant neoplasm Unknown father Hypertension Unknown Advance Directives Advance Directive Response Recorded Date/ Time Living Will No March 13, 2023 9:56am Power of Senior Center Manager No March 13 9:56am Advance Directive Response Recorded Date/ Time Living Will No March 13, 2023 8:56am Power of Senior Center Manager No March 13 8:56am Chief Complaint and Reason for Visit Chief Complaint RUQ PAIN Chief Complaint RUQ PAIN RUQ PAIN GALLBLADDER DISEASE LAP ANAMIKA W IOC LAP ANAMIKA W IOC Reason for Visit Acid reflux Biliary dyskinesia Chief Complaint LAP ANAMIKA 03/20 MEDICATION CHECK PROLIA Reason for Visit S/P laparoscopic cho lecystectomy S/P laparoscopic cholecystectomy Diarrhea Chief Complaint PROLIA Chief Complaint Admit Date BACK PAIN January 27, 2025 4:00pm Chief Complaint Admit Date BACK PAIN January 27, 2025 4:00pm PROLIA February 24, 2025 12:18 pm Chief Complaint Admit Date BACK PAIN January 27, 2025 4:00pm PROLIA February 24, 2025 12:18 pm LEG MASS April 28, 2025 3:0 6pm Chief Complaint Admit Date LEG MASS April 28, 2025 3:0 6pm RT LOWER LEG MASS June 16, 2025 2:40pm Chief Complaint Admit Date LEG MASS April 28, 2025 3:0 6pm RT LOWER LEG MASS June 16, 2025 2:40pm LUMP ON LEG July 14, 2025 2 :17pm Reason for Visit Admit Date Lipedema of lower extremity June 2:17pm Additional Source Comments Source Comments (unrecognize d section and content) In the event this informatio n is protected by the Federal Confidentiality of Alcohol and Drug Abuse Patient Records regulations: The Federal rules restrict any use of the information to criminally investigate or prosecute any alcohol or drug abuse patient.[facility] HospitalIn the event this information is protected by the Federal Confidentiality of Alcohol and Drug Abuse Patient Records regulations: The Federal rules restrict any use of the information to criminally investigate or prosecute any alcohol or drug abuse patient.[facility] Reason for Visit (unrecogniz ed section and content) Reason Comments Appointment Reason Comments Opened In Error INFORMATION SOURCE (unrecogn ized section and content) DATE CREATED AUTHOR 11/11/2021 [facility] DATE CREATED AUTHOR AUTHOR'S ORGANIZ ATION 07/15/2025 [facility] Goals (unrecognized section and content) Goals may be documented in a n alternate sectionGoals may be documented in an alternate sectionGoals may be documented in an alternate sectionGoals may be documented in an alternate sectionGoals may be documented in an alternate sectionGoals may be documented in an alternate sectionGoals may be documented in an alternate sectionGoals may be documented in an alternate sectionGoals may be documented in an alternate sectionGoals may be documented in an alternate sectionGoals may be documented in an alternate sectionGoals may be documented in an alternate sectionGoals may be documented in an alternate sectionGoals may be documented in an alternate section Care Teams (unrecognized sec tion and content) Team Status: Active Member Role Status Dates Dr. Aneudy Win MD Primary Care Provider Active Team Status: Inactive Member Role Status Dates Dr. Aneudy Win MD Primary Care Provi karla, Attending Provider, Referring Provider Active Team Status: Inactive Member Role Status Dates Dr. Aneudy Win MD Primary Care Provider, Referring Provider Active Dr. Melissa Munoz MD Attending Provider Active Team Status: Active Member Role Status Dates Dr. Aneudy Win MD Primary Care Provider Active Dr. Melissa Munoz MD Attending Provi karla, Referring Provider, Other Provider Active Team Status: Active Member Role Status Dates Dr. Aneudy Win MD Primary Care Provi karla, Attending Provider, Referring Provider Active Team Status: Inactive Member Role Status Dates Dr. Aneudy Win MD Primary Care Provider Active Dr. Melissa Munoz MD Attending Provider, Referring Provider Active Team Status: Inactive Member Role Status Dates Dr. Aneudy Win MD Primary Care Provider, Attending Provider Active Team Status: Inactive Member Role Status Dates Dr. Aneudy Win MD Primary Care Provider Active Start: November 17, 2024 End: November 17, 2024 Dr. Aneudy Win MD Attending Provider Active Start: November 17, 2024 End: November 17, 2024 Dr. Aneudy Win MD Referring Provider Active Start: November 17, 2024 End: November 17, 2024 Team Status: Inactive Member Role Status Dates Dr. Aneudy Win MD Primary Care Provider Active Start: January 27, 2025 End: January 27, 2025 Dr. Aneudy Win MD Attending Provider Active Start: January 27, 2025 End: January 27, 2025 Dr. Aneudy Win MD Referring Provider Active Start: January 27, 2025 End: January 27, 2025 Team Status: Inactive Member Role Status Dates Dr. Aneudy Win MD Primary Care Provider Active Start: February 24, 2025 End: February 24, 2025 Dr. Aneudy Win MD Attending Provider Active Start: February 24, 2025 End: February 24, 2025 Dr. Aneudy Win MD Referring Provider Active Start: February 24, 2025 End: February 24, 2025 Team Status: Active Member Role/Relationship Status Dates Dr. Aneudy Win MD Primary Care Provider Active Team Status: Inactive Member Role/Relationship Status Dates Dr. Aneudy Win MD Primary Care Provider Active Start: January 27, 2025 End: January 27, 2025 Dr. Aneudy Win MD Attending Provider Active Start: January 27, 2025 End: January 27, 2025 Dr. Aneudy Win MD Referring Provider Active Start: January 27, 2025 End: January 27, 2025 Team Status: Inactive Member Role/Relationship Status Dates Dr. Aneudy Win MD Primary Care Provider Active Start: February 24, 2025 End: February 24, 2025 Dr. Aneudy Win MD Attending Provider Active Start: February 24, 2025 End: February 24, 2025 Dr. Aneudy Win MD Referring Provider Active Start: February 24, 2025 End: February 24, 2025 Team Status: Inactive Member Role/Relationship Status Dates Dr. Aneudy Win MD Primary Care Provider Active Start: April 28, 2025 End: April 28, 2025 Dr. Aneudy Win MD Attending Provider Active Start: April 28, 2025 End: April 28, 2025 Dr. Aneudy Win MD Referring Provider Active Start: April 28, 2025 End: April 28, 2025 Team Status: Active Member Role/Relationship Status Dates Dr. Aneudy Win MD Primary care physician Active Team Status: Inactive Member Role/Relationship Status Dates Dr. Aneudy Win MD Primary care physician Active Start: April 28, 2025 End: April 28, 2025 Dr. Aneudy Win MD Attending physician Active Start: April 28, 2025 End: April 28, 2025 Dr. Aneudy Win MD Referring Provider Active Start: April 28, 2025 End: April 28, 2025 Team Status: Inactive Member Role/Relationship Status Dates Dr. Aneudy Win MD Primary care physician Active Start: June 16, 2025 End: June 16, 2025 Dr. Aneudy Win MD Attending physician Active Start: June 16, 2025 End: June 16, 2025 Dr. Aneudy Win MD Referring Provider Active Start: June 16, 2025 End: June 16, 2025 Team Status: Inactive Member Role/Relationship Status Dates Dr. Aneudy Win MD Primary care physician Active Start: July 14, 2025 End: July 14, 2025 Dr. Aneudy Win MD Referring Provider Active Start: July 14, 2025 End: July 14, 2025 Dr. Kj Man MD Attending physician Active Start: July 14, 2025 End: July 14, 2025 FOR RECORDS PERTAINING TO PATIENTS WHO ARE OR HAVE BEEN ENROLLED IN A CHEMICAL DEPENDENCY/SUBSTANCEABUSE PROGRAM, SOME INFORMATION MAY BE OMITTED. This clinical summary was aggregated from multiple sources. Caution should be exercised in using it in the provision of clinical care. This summary normalizes information from multiple sources, and as a consequence, information in this document may materially change the coding, format and clinical context of patient data. In addition, data may be omitted in some cases. CLINICAL DECISIONS SHOULD BE BASED ON THE PRIMARY CLINICAL RECORDS. [employer] provides no warranty or guarantee of the accuracy or completeness of information in this document.
[2025-08-11 18:11] LABS: AST(SGOT) 21 U/L (<=31); Alanine Aminotransfer ALT/SGPT 9 U/L (<=34); Albumin, Serum 4.4 g/dL (3.4-4.8); Alkaline Phosphatase 86 U/L (35-104); Anion Gap 14 (5-15); BUN 6 mg/dL (4-19); BUN/Creat Ratio 7.8 RATIO (10-20); Calcium,Total 9.9 mg/dL (7.6-11.0); Carbon Dioxide 24.4 mmol/L (21.0-32.0); Chloride 102 mmol/L (98-108); Cholesterol 154 mg/dL (<=200); Free T3 3.3 pg/mL (2.18-3.98); Globulin 3.2 g/dL (2.2-4.2); Glucose 96 mg/dL (70-99); Low Density Lipoprotein Calc. 70 mg/dL; Potassium 3.9 mmol/L (3.3-5.1); Triglycerides 275 mg/dL; Very Low Density Lipoprotein 55 mg/dL (5-40); cholesterol:hdl ratio screen 3.83
== END | disposition home or self-care (01) ==
LOC: MFPLAB 14:32
PROVIDERS: PCP Family Medicine; Visit Provider Family Medicine
DX: E03.9 Hypothyroidism, unspecified (principal); E78.5 Hyperlipidemia, unspecified
CPT/HCPCS: 36415; 80053; 80061; 84439; 84443; 84481

== ENCOUNTER 2025-09-01 12:54 | Outpatient (CLI) | payer MEDICARE, MEDICAID, SELFPAY ==
[2025-09-01 13:00] VITALS: BP 126/78; PULSE 82; RESP 16; TEMP 35.8; O2SAT 95; BMI 33.0
[2025-09-01] MEDS: DENOSUMAB 60 MG/ML SC (13:06)
== END 2025-09-01 23:59 | disposition home or self-care (01) ==
LOC: MEDOUTP 12:55
PROVIDERS: PCP Family Medicine; Referring Provider Family Medicine; Visit Provider Family Medicine
DX: M81.0 Age-related osteoporosis without current pathological fracture (principal)
CPT/HCPCS: 96372; J0897